=== PATIENT | male | born 1930 | race Caucasian/White ===

== ENCOUNTER 2016-09-20 08:40 | Emergency (ER) | payer OTHER ==
[~2016-09-20] VITALS: Ht 177.8 cm; Wt 71.0 kg
[~2016-09-20 08:40] MED LIST: IBUP400 PO; OCUV PO; [UNRECOGNIZED DRUG - OTHER] OP; bp pill PO
[2016-09-20 08:47] VITALS: BP 157/74; PULSE 74; RESP 16; TEMP 97.6
[2016-09-20] MEDS ORDERED: BLOOD THINNER (09:03)
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
[2016-09-20] MEDS ORDERED: TETANUS/DIPHTHERIA TOXOID ADULT 0.5 ML VIAL IM ONE (09:15)
[2016-09-20] MEDS ORDERED: LIDOCAINE HCL 1% 20 ML VIAL INFIL ONE (09:15)
[2016-09-20] MEDS ORDERED: LIDOCAINE HCL 1% PF 30 ML VIAL INFIL ONE (09:30)
[2016-09-20] MEDS ORDERED: NORC5TAB PO (09:53)
[2016-09-20] MEDS ORDERED: CEPH-460 PO (09:53)
[2016-09-20 09:54] VITALS: BP 149/77; PULSE 87; RESP 16; O2SAT 93
--- NOTE | 2016-09-20 10:01 | RADHPO ---
EXAM DATE/TIME: 09/20/2016 09:20 [facility] COMPARISON: CT BRAIN W/O CONTRAST, December 16, 2013, 19:07. INDICATIONS : Fall last night, laceration to right side of head. RADIATION DOSE: 62.17 CTDIvol (mGy) MEDICAL HISTORY : Hypertension. SURGICAL HISTORY : right eye surgery ENCOUNTER: Initial ACUITY: 1 day PAIN SCALE: 3/10 LOCATION: Right head TECHNIQUE: Multiple contiguous axial images were obtained of the head. Using automated exposure control and adj ustment of the mA and/or kV according to patient size, radiation dose was kept as low as reasonably a chievable to obtain optimal diagnostic quality images. FINDINGS: CEREBRUM: The ventricles are normal for age. There is chronic bilateral cortical atrophy and stable chronic whi te matter changes bilaterally. No evidence of midline shift, mass lesion, hemorrhage or acute infarc tion. No extra-axial fluid collections are seen. POSTERIOR FOSSA: The cerebellum and brainstem are intact. The 4th ventricle is midline. The cerebellopontine angle i s unremarkable. EXTRACRANIAL: The visualized portion of the orbits is intact. SKULL: The calvaria is intact. No evidence of skull fracture. No significant change. CONCLUSION: 1. No focal or acute intracranial hemorrhage. 2. Stable bilateral chronic atrophy and white matter changes characteristic for patient's age. Fer Lawson MD on September 20, 2016 at 9:57 Board Certified Radiologist. This report was verified electronically.
== END 2016-09-20 10:24 | disposition home or self-care (01) ==
LOC: PHED 08:40
DX: S09.90XA Unspecified injury of head, initial encounter (principal); S01.311A Laceration without foreign body of right ear, initial encounter; S01.319A Laceration without foreign body of unspecified ear, initial encounter; M19.90 Unspecified osteoarthritis, unspecified site; I10 Essential (primary) hypertension; Z87.442 Personal history of urinary calculi; F10.10 Alcohol abuse, uncomplicated; Z79.01 Long term (current) use of anticoagulants; W20.8XXA Other cause of strike by thrown, projected or falling object, initial encounter; Y93.9 Activity, unspecified; Y92.9 Unspecified place or not applicable; Y99.9 Unspecified external cause status; F17.210 Nicotine dependence, cigarettes, uncomplicated
CPT/HCPCS: 12013; 70450; 90471; 90714

== ENCOUNTER 2016-09-22 11:21 | Emergency (ER) | payer OTHER ==
[~2016-09-22] VITALS: Ht 182.9 cm; Wt 71.0 kg
[~2016-09-22 11:21] MED LIST changes: +BLOOD THINNER; +CEPH-460 PO; -IBUP400 PO; +NORC5TAB PO; -OCUV PO
[2016-09-22 11:50] VITALS: BP 136/95; PULSE 95; RESP 16; TEMP 98.2; O2SAT 97
--- NOTE | 2016-09-22 12:15 | PD ---
Data Data Last Documented VS Vital Signs Date Time Temp Pulse Resp B/P Pulse Ox O2 Delivery O2 Flow Rate FiO2 09/22/16 14:11 88 16 97 09/22/16 11:50 98.2 136/[address] Brain W/O Iv Contrast(Rout) (09/22/16 ) MDM Supervised Visit with PAOLA: Yes Narrative Course I, Dr. Mckeon, have reviewed the advance practice practitioner's documentation and am in agreement, met with the patient face to face, made the diagnosis, and the medical decision making was done by me. *My assessment and Findings: Patient had auricular hematoma drained [address] Rodriguez. There is some bruising but there is no obvious hematoma at this time. Contours of the charcoal are the same bilaterally. There is no obvious fluid collection. Sutures are intact. There is still some blood in the canal which appears fairly fresh and needs further examination and irrigation to ascertain a source. This may be blood coming from the outside injury in that needs rule out of canal injury. Patient was discussed with Dr. Roxy Marshall and the base of the skull was not well visualized on last exam. He recommends repeat imaging. So ordered. If negative can be discharged. Ralph Mckeon MD Sep 22, 2016 12:15
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
--- NOTE | 2016-09-22 13:34 | RADHPO ---
EXAM DATE/TIME: 09/22/2016 13:15 [facility] COMPARISON: CT BRAIN W/O CONTRAST, September 20, 2016, 9:20. CT BRAIN W/O CONTRAST, December 16, 2013, 19:07. INDICATIONS : Follow up basilar skull fracture. RADIATION DOSE: 60.01 CTDIvol (mGy) MEDICAL HISTORY : Hypertension. SURGICAL HISTORY : None. ENCOUNTER: [facility] ACUITY: 3 days PAIN SCALE: 1/10 LOCATION: Right cranial TECHNIQUE: Multiple contiguous axial images were obtained of the head. Using automated exposure control and adj ustment of the mA and/or kV according to patient size, radiation dose was kept as low as reasonably a chievable to obtain optimal diagnostic quality images. FINDINGS: CEREBRUM: The ventricles are normal for age. No evidence of midline shift, mass lesion, hemorrhage or acute in farction. No extra-axial fluid collections are seen. Again appreciated is ischemic deep white matter demyelinization microvascular disease and mild atrophy age-appropriate. POSTERIOR FOSSA: The cerebellum and brainstem are intact. The 4th ventricle is midline. The cerebellopontine angle i s unremarkable. EXTRACRANIAL: The visualized portion of the orbits is intact. Questionable development of a small air-fluid level i n the sphenoid sinus posteriorly. SKULL: The calvaria is intact. No evidence of skull fracture. CONCLUSION: Suggestion of a developed small air-fluid level single image posterior sphenoid sinus. Otherwise stab le exam Jesus Squires MD on September 22, 2016 at 13:29 Board Certified Radiologist. This report was verified electronically.
== END 2016-09-22 14:13 | disposition home or self-care (01) ==
LOC: PHED 11:21 → PHEFT 14:13
DX: S00.431D Contusion of right ear, subsequent encounter (principal); S01.311D Laceration without foreign body of right ear, subsequent encounter; H73.891 Other specified disorders of tympanic membrane, right ear; I10 Essential (primary) hypertension; F17.200 Nicotine dependence, unspecified, uncomplicated; Z79.01 Long term (current) use of anticoagulants; Z87.39 Personal history of other diseases of the musculoskeletal system and connective tissue; Z86.69 Personal history of other diseases of the nervous system and sense organs; Z87.442 Personal history of urinary calculi; Z87.09 Personal history of other diseases of the respiratory system; W19.XXXD Unspecified fall, subsequent encounter
CPT/HCPCS: 70450

== ENCOUNTER 2016-09-26 08:56 | Emergency (ER) | payer OTHER ==
[~2016-09-26] VITALS: Ht 180.3 cm; Wt 71.8 kg
[~2016-09-26 08:56] MED LIST changes: -BLOOD THINNER
[2016-09-26 09:01] VITALS: BP 166/83; PULSE 84; RESP 16; TEMP 98.2; O2SAT 97
--- NOTE | 2016-09-26 09:46 | PD ---
HPI Chief Complaint: Wound/Suture/Staple Re-Check Time Seen by Provider: 09:31 Travel History International Travel<30 days: No Contact w/Intl Traveler<30days: No Traveled to known affect area: No History of Present Illness HPI Patient is an 86-year-old male who suffered a fall and subsequently suffered laceration to his right ear on September 20, 2016. Patient had 4 sutures placed to right ear. Patient was told to come to the emergency room for suture removal today. Patient with no complaints at this time. PFSH Past Medical History Hx Anticoagulant Therapy: Yes Arthritis: Yes Asthma: No Autoimmune Disease: No Heart Rhythm Problems: No Cancer: No Cardiovascular Problems: No High Cholesterol: No Chemotherapy: No Chest Pain: No Congestive Heart Failure: No COPD: No Cerebrovascular Accident: No Diabetes: No Endocrine: No GERD: No Glaucoma: Yes Genitourinary: No Hypertension: Yes Immune Disorder: No Kidney Stones: Yes Musculoskeletal: Yes Neurologic: No Psychiatric: No Reproductive: No Respiratory: Yes Migraines: No Radiation Therapy: No Renal Failure: No Seizures: No Sickle Cell Disease: No Sleep Apnea: No Thyroid Disease: No Ulcer: No Influenza Vaccination: Yes Past Surgical History Abdominal Surgery: No AICD: No Arteriovenous Shunt: No Cardiac Surgery: No Endocrine Surgery: No Eye Surgery: Yes ( RIGHT EYE) Genitourinary Surgery: No Gynecologic Surgery: No Insulin Pump: No Joint Replacement: Yes (HIP) Oral Surgery: No Pacemaker: No Thoracic Surgery: No Other Surgery: Yes Family History Family History: Negative Social History Alcohol Use: Yes (4 BEERS DAILY) Tobacco Use: Yes (1/2 PPD) Substance Use: No Allergies-Medications (Allergen,Severity, Reaction): Coded Allergies: No Known Allergies (Unverified , 09/26/16) Reported Meds & Prescriptions Reported Meds & Active Scripts Active [place] (Hydrocodone-Acetaminophen) 5-325 mg Tab 1 Tab PO Q6H PRN Keflex (Cephalexin) 500 Mg Cap 500 Mg PO Q6H 5 Days Reported [glaucoma med] 1 Drop OP DAILY [bp pill] 1 Tab PO DAILY Review of Systems General / Constitutional: No: Fever Eyes: No: Visual changes HENT: No: Headaches Cardiovascular: No: Chest Pain or Discomfort Respiratory: No: Shortness of Breath Gastrointestinal: No: Abdominal Pain Genitourinary: No: Dysuria Musculoskeletal: No: Pain Skin: No Rash Neurologic: No: Weakness Psychiatric: No: Depression Endocrine: No: Polydipsia Hematologic/Lymphatic: No: Easy Bruising Physical Exam Narrative GENERAL: Well-nourished, well-developed patient. SKIN: Warm and dry. Patient with 4 sutures to his left ear - laceration is healing with no signs of infection or redness or drainage HEAD: Normocephalic. EYES: No scleral icterus. No injection or drainage. NECK: Supple, trachea midline. No JVD or lymphadenopathy. CARDIOVASCULAR: Regular rate and rhythm without murmurs, gallops, or rubs. RESPIRATORY: Breath sounds equal bilaterally. No accessory muscle use. GASTROINTESTINAL: Abdomen soft, non-tender, nondistended. MUSCULOSKELETAL: No cyanosis, or edema. Data Data Last Documented VS Vital Signs Date Time Temp Pulse Resp B/P Pulse Ox O2 Delivery O2 Flow Rate FiO2 09/26/16 09:01 98.2 84 16 166/83 97 MDM Medical Decision Making Medical Screen Exam Complete: Yes Emergency Medical Condition: No Differential Diagnosis Suture removal to right ear Narrative Course Patient is an 86-year-old male who suffered a right ear laceration on August and had 4 sutures placed to right ear. Patient is here for suture removal. Patient reports no complications from his fall and ear laceration. Patient reports that he has been feeling fine, patient here for suture removal. 4 simple interrupted sutures removed from his right ear. Patient will follow- up with his primary are doctor and return to ER as needed. Diagnosis Primary Impression: Visit for suture removal Patient Instructions: General Instructions Additional Instructions: Return to the emergency room as needed Disposition: 01 DISCHARGE HOME Condition: Stable Katiana Shah DO Sep 26, 2016 09:45
== END 2016-09-26 09:54 | disposition home or self-care (01) ==
LOC: PHED 08:56
DX: Z48.02 Encounter for removal of sutures (principal); S01.311D Laceration without foreign body of right ear, subsequent encounter
CPT/HCPCS: 99281

== ENCOUNTER 2018-02-12 05:10 | Emergency (ER) | payer OTHER ==
[~2018-02-12] VITALS: Ht 180.3 cm; Wt 72.7 kg
[2018-02-12 05:10] VITALS: BP_SYST 177; BP_SYST 182; BP_DIAS 121; BP_DIAS 95; PULSE 87; RESP 16; TEMP 98.1; O2SAT 96
[2018-02-12] MEDS ORDERED: ASPI-183 PO (05:20)
[2018-02-12] MEDS ORDERED: OCUVTAB PO (05:21)
--- NOTE | 2018-02-12 06:10 | RADRPT ---
EXAM DATE: 02/12/2018 6:01 AM EDT AGE/SEX: 87 years / Male INDICATIONS: Patient fell and hit head walking home from bar. CLINICAL DATA: This is the patient's initial encounter. Patient reports that signs and symptoms have been present for 1 day and indicates a pain score of 4/10. MEDICAL/SURGICAL HISTORY: Hypertension. None. RADIATION DOSE: 36.46 CTDI (mGy) COMPARISON: [facility], CT BRAIN W/O CONTRAST, 09/22/2016. . TECHNIQUE: CT of the head without contrast. Using automated exposure control and adjustment of the mA and/or kV according to patient size, radiation dose was kept as low as reasonably achievable to ob tain optimal diagnostic quality images. DICOM format image data is available electronically for revi ew and comparison. FINDINGS: Cerebrum: The ventricles are normal for age. No evidence of midline shift, mass lesion, hemorrhage or acute infarction. No extraaxial fluid collections are seen. Posterior Fossa: The cerebellum and brainstem are intact. The 4th ventricle is midline. The cerebe llopontine angle is unremarkable. Extracranial: The visualized portion of the orbits is intact. There are multiple new fractures invol ving the right anterior, lateral and posterior maxilla. There is a large air-fluid level now noted in the right maxillary sinus. Skull: The calvaria is intact. No evidence of skull fracture. CONCLUSION: 1. New acute fractures of the right anterior, lateral and posterior maxilla with large air-fluid lev el in the right maxillary sinus. 2. No acute hemorrhage or mass effect. Electronically signed by: Gary Walton MD 02/12/2018 6:09 AM EDT
--- NOTE | 2018-02-12 06:12 | RADRPT ---
EXAM DATE: 02/12/2018 6:08 AM EDT AGE/SEX: 87 years / Male INDICATIONS: Patient fell and hit head walking home from the bar. CLINICAL DATA: This is the patient's initial encounter. Patient reports that signs and symptoms have been present for 1 day and indicates a pain score of 4/10. MEDICAL/SURGICAL HISTORY: Hypertension. None. RADIATION DOSE: 26.41 CTDI (mGy) COMPARISON: No prior exams available for comparison. TECHNIQUE: Contiguous axial images were obtained using helical multirow detector technique. The vol umetric data was post-processed with multiplanar reconstruction in oblique axial, sagittal, and coron al planes. Using automated exposure control and adjustment of the mA and/or kV according to patient s ize, radiation dose was kept as low as reasonably achievable to obtain optimal diagnostic quality gaby ges. DICOM format image data is available electronically for review and comparison. FINDINGS: Vertebrae: Normal vertebral body height. There is patchy osteopenia. Diffuse degenerative disc changes are present with disc space narrowing and hypertrophic change. The dens is intact Alignment: Normal. No subluxation. The axial images demonstrate that the vertebral bodies and posterior elements are intact with no evid ence of fracture. Diffuse degenerative disc changes are present with disc osteophyte complexes. Hyper trophic changes are noted involving the facet joints. CONCLUSION: 1. No acute fracture or malalignment. 2. Diffuse degenerative disc and degenerative joint changes. Electronically signed by: Gary Walton MD 02/12/2018 6:10 AM EDT
[2018-02-12 06:15] VITALS: BP 196/94; PULSE 106; O2SAT 97
[2018-02-12 06:21] LABS: HEMATOCRIT 44.7 % (39.0-51.0); HEMOGLOBIN 15.5 GM/DL (13.0-17.0); MEAN CELL VOLUME 96.3 FL (80.0-100.0); MEAN CORPUSCULAR HEMOGLOBIN 33.5 PG (27.0-34.0); MEAN CORPUSCULAR HGB CONC 34.8 % (32.0-36.0); MEAN PLATELET VOLUME 10.2 FL (7.0-11.0); PLATELET COUNT 202 TH/MM3 (150-450); RED BLOOD COUNT 4.64 MIL/MM3 (4.50-5.90); RED CELL DISTRIBUTION WIDTH 13.2 % (11.6-17.2); WHITE BLOOD COUNT 12.5 TH/MM3 (4.0-11.0)
[2018-02-12] MEDS ORDERED: KETOROLAC TROMETHAMINE 30 MG/ML (IVP) VIAL IV PUSH ONE (06:30)
[2018-02-12] MEDS ORDERED: cefTRIAXone INJ 1,000 MG in SODIUM CHLORIDE 0.9% INJ 100 ML IV ONE (06:30)
[2018-02-12 06:31] LABS: CHLORIDE 102 MEQ/L (98-107); SODIUM (NA) 138 MEQ/L (136-145)
[2018-02-12 06:34] LABS: CALCIUM 9.2 MG/DL (8.5-10.1)
[2018-02-12 06:35] LABS: ALBUMIN 3.8 GM/DL (3.4-5.0); BICARBONATE 27.1 MEQ/L (21.0-32.0); BLOOD UREA NITROGEN 13 MG/DL (7-18); GLUCOSE,RANDOM 88 MG/DL (74-106)
[2018-02-12 06:38] LABS: ALT (GPT) 35 U/L (12-78); AST (GOT) 51 U/L (15-37); CREATININE 0.63 MG/DL (0.60-1.30); GLOMERULAR FILTRATION RATE 120 ML/MIN (>89)
[2018-02-12 06:40] LABS: TOTAL BILIRUBIN ADULT 0.8 MG/DL (0.2-1.0); TOTAL PROTEIN 8.3 GM/DL (6.4-8.2)
[2018-02-12 06:41] LABS: ALKALINE PHOSPHATASE 89 U/L (45-117)
[2018-02-12 06:53] LABS: BANDS 1 % (0-6); BASOPHILS 1 % (0-2); LYMPHOCYTES 7 % (9-44); MONOCYTES 3 % (0-8); NEUTROPHIL # MANUAL DIFF 11.1 TH/MM3 (1.8-7.7); POLYS (SEG NEUTROPHILS) 88 % (16-70)
--- NOTE | 2018-02-12 07:09 | PD ---
HPI Chief Complaint: Fall Time Seen by Provider: 06:27 Travel History International Travel<30 days: No Contact w/Intl Traveler<30days: No Traveled to known affect area: No History of Present Illness HPI The patient is an 87-year-old male that was walking from a bar to home and he fell on the sidewalk. He suffered abrasions when he hit his right face. There apparently there there was loss of consciousness.. He denies any neck pain or radiation of pain down his arms or legs. The patient's last tetanus shot was last year. PFSH Past Medical History Hx Anticoagulant Therapy: Yes (ASPIRIN) Arthritis: Yes Asthma: No Autoimmune Disease: No Heart Rhythm Problems: No Cancer: No Cardiovascular Problems: No High Cholesterol: No Chemotherapy: No Chest Pain: No Congestive Heart Failure: No COPD: No Cerebrovascular Accident: No Diabetes: No Endocrine: No GERD: No Glaucoma: Yes Genitourinary: Yes (URINARY FREQUENCY) Hypertension: Yes Immune Disorder: No Kidney Stones: Yes Musculoskeletal: Yes Neurologic: No Psychiatric: No Reproductive: No Respiratory: Yes Migraines: No Pneumonia: Yes Radiation Therapy: No Renal Failure: No Seizures: No Sickle Cell Disease: No Sleep Apnea: No Thyroid Disease: No Ulcer: No Influenza Vaccination: Yes Past Surgical History Abdominal Surgery: No AICD: No Arteriovenous Shunt: No Cardiac Surgery: No Endocrine Surgery: No Eye Surgery: Yes (BILAT CATARACT) Genitourinary Surgery: No Gynecologic Surgery: No Insulin Pump: No Joint Replacement: Yes (RIGHT HIP) Oral Surgery: Yes ("HAD ALL MY TEETH REMOVED") Pacemaker: No Thoracic Surgery: No Other Surgery: Yes Social History Alcohol Use: Yes (4 BEERS DAILY) Tobacco Use: Yes (1/4 PPD) Substance Use: No Allergies-Medications (Allergen,Severity, Reaction): Coded Allergies: No Known Allergies (Unverified Adverse Reaction, Unknown, 02/12/18) Reported Meds & Prescriptions Reported Meds & Active Scripts Active Cephalexin 500 Mg Tab 500 Mg PO Q6H Reported Ocuvite (Multiple Vitamins W/ Minerals) 1 Tab 1 Tab PO DAILY Aspirin 325 Mg Tab 325 Mg PO DAILY [glaucoma med] 1 Drop OP DAILY [bp pill] 1 Tab PO DAILY Review of Systems Except as stated in HPI: all other systems reviewed are Neg Physical Exam Narrative GENERAL: The patient is alert, oriented 3 in moderate apparent distress with his right facial pain. His vital signs show blood pressure 182/121 but repeat is 177/95. The patient does not appear intoxicated with alcohol clinically. SKIN: Focused skin assessment warm/dry. There is an abrasion over the right face, this will be cleaned by the nurses. HEAD: Neither raccoon eyes or sorto sign is present.. Normocephalic. EYES: Pupils equal and round. No scleral icterus. No injection or drainage. Extraocular movements are normal, no entrapment is noted. ENT: No nasal bleeding or discharge. Mucous membranes pink and moist. There is no hemotympanum present and no blood coursing down the posterior pharyngeal wall, there is no septal hematoma present. NECK: Trachea midline. No JVD. No neck tenderness is present and there is no posterior spinous process deformity or tenderness. CARDIOVASCULAR: Regular rate and rhythm. No murmur appreciated. RESPIRATORY: No accessory muscle use. Clear to auscultation. Breath sounds equal bilaterally. GASTROINTESTINAL: Abdomen soft, non-tender, nondistended. Hepatic and splenic margins not palpable. No guarding or rebound is present. MUSCULOSKELETAL: No obvious deformities. No clubbing. No cyanosis. No edema. NEUROLOGICAL: Awake and alert. No obvious cranial nerve deficits. Motor grossly within normal limits. Normal speech. PSYCHIATRIC: Appropriate mood and affect; insight and judgment normal. Data Data Last Documented VS Vital Signs Date Time Temp Pulse Resp B/P (MAP) Pulse Ox O2 Delivery O2 Flow Rate FiO2 02/12/18 06:15 106 196/94 (128) 97 Room Air 02/12/18 05:10 98[address] Brain W/O Iv Contrast(Rout) (02/12/18 ) Ct Cerv Spine W/O Contrast (02/12/18 ) Complete Blood Count With Diff (02/12/18 05:29) Comprehensive Metabolic Panel (02/12/18 05:29) Alcohol (Ethanol) (02/12/18 05:29) Ketorolac Inj (Toradol Inj) (02/12/18 06:30) Ceftriaxone Inj (Rocephin Inj) (02/12/18 06:30) Lidocaine 1% Inj (50 Ml) (Xylocaine 1% I (02/12/18 07:30) Ceftriaxone Inj (Rocephin Inj) (02/12/18 07:30) Labs Laboratory Tests Test 02/12/18 06:00 White Blood Count 12.5 TH/MM3 Red Blood Count 4.64 MIL/MM3 Hemoglobin 15.5 GM/DL Hematocrit 44.7 % Mean Corpuscular Volume 96.3 FL Mean Corpuscular Hemoglobin 33.5 PG Mean Corpuscular Hemoglobin Concent 34.8 % Red Cell Distribution Width 13.2 % Platelet Count 202 TH/MM3 Mean Platelet Volume 10.2 FL CBC Comment AUTO DIFF Differential Total Cells Counted 100 Neutrophils % (Manual) 88 % Band Neutrophils % 1 % Lymphocytes % 7 % Monocytes % 3 % Basophils % 1 % Neutrophils # (Manual) 11.1 TH/MM3 Differential Comment FINAL DIFF MANUAL Platelet Estimate NORMAL Platelet Morphology Comment NORMAL Red Cell Morphology Comment NORMAL Blood Urea Nitrogen 13 MG/DL Creatinine 0.63 MG/DL Random Glucose 88 MG/DL Total Protein 8.3 GM/DL Albumin 3.8 GM/DL Calcium Level 9.2 MG/DL Alkaline Phosphatase 89 U/L Aspartate Amino Transf (AST/SGOT) 51 U/L Alanine Aminotransferase (ALT/SGPT) 35 U/L Total Bilirubin 0.8 MG/DL Sodium Level 138 MEQ/L Potassium Level 3.8 MEQ/L Chloride Level 102 MEQ/L Carbon Dioxide Level 27.1 MEQ/L Anion Gap 9 MEQ/L Estimat Glomerular Filtration Rate 120 ML/MIN Ethyl Alcohol Level 32 MG/DL [facility] Medical Decision Making Medical Screen Exam Complete: Yes Emergency Medical Condition: Yes Medical Record Reviewed: Yes Interpretation(s) The CT brain shows no acute fractures of the right anterior, lateral and posterior maxilla with large air-fluid levels in the right maxillary sinus. The brain shows no acute hemorrhage or mass-effect. The CT of the cervical spine shows no acute fracture or malalignment but does show diffuse degenerative disc and degenerative joint changes. The complete metabolic profile shows a total protein of 8.3 and SGOT of 51 but is otherwise normal. The alcohol level is only 32. The CBC shows a white count of 12,500 but is otherwise unremarkable. Differential Diagnosis Intracranial hemorrhage, skull fracture, facial/maxillary fractures,, fracture C -spine, cervical strain Narrative Course The patient has fractures of the right maxilla. I discussed at length admission for this patient but is unclear what benefits will drive from admission. Maxillofacial generally likes to see the patient as an outpatient in their office. The patient will be referred to maxillofacial and given tramadol and the antibiotic Keflex. He is given Rocephin here. The patient is partially blind that he can see if we print addresses and phone numbers using large lettering. The nurse will do this. He should set up an appointment with maxillofacial. If he does not think he can do this, or if he continues to fall he should call an ambulance for possible admission. Additional Instructions: Follow-up with maxillofacial, we will write his their address in large print as well as their phone number. The prescription for pain medicine and antibiotics will need to be filled. Do not combine the pain medicine or antibiotic with alcohol. Scripts Tramadol (Tramadol) 50 Mg Tab 50 MG PO Q6H Y for PAIN, #20 TAB 0 Refills Prov: Jeremiah Rowe MD 02/12/18 Cephalexin (Cephalexin) 500 Mg Tab 500 MG PO Q6H for Infection, #40 TAB 0 Refills Prov: Jeremiah Rowe MD 02/12/18 Disposition: 01 DISCHARGE HOME Condition: Stable Jeremiah Rowe MD Feb 12, 2018 07:09
[2018-02-12] MEDS ORDERED: CEPH500T PO (07:22)
[2018-02-12] MEDS ORDERED: TRAM50TA PO (07:23)
[2018-02-12] MEDS ORDERED: LIDOCAINE HCL 1% PF 5 ML AMPULE ONE (07:26)
[2018-02-12] MEDS ORDERED: LIDOCAINE HCL 1% 50 ML VIAL IM ONE (07:30)
[2018-02-12 07:38] VITALS: BP 169/89; PULSE 97; RESP 18; O2SAT 98
[2018-02-12 08:16] VITALS: RESP 18
== END 2018-02-12 08:23 | disposition home or self-care (01) ==
LOC: PHED 05:10
DX: S02.40CA Maxillary fracture, right side, initial encounter for closed fracture (principal); W18.30XA Fall on same level, unspecified, initial encounter; Y93.01 Activity, walking, marching and hiking; Y92.480 Sidewalk as the place of occurrence of the external cause; I10 Essential (primary) hypertension; M19.90 Unspecified osteoarthritis, unspecified site; F17.210 Nicotine dependence, cigarettes, uncomplicated; Z87.442 Personal history of urinary calculi; Z79.899 Other long term (current) drug therapy
CPT/HCPCS: 70450; 72125; 80053; 80307; 85007; 85027; 96372; 96374; 96375; 99284; J0696; J1885

== ENCOUNTER 2018-05-26 11:49 | Inpatient (IN) ==
--- NOTE | 2018-05-26 12:19 | ED ---
HPI General Chief complaint: Urogenital-Male Stated complaint: Weakness Time Seen by Provider: 05/26/18 12:02 Source: patient Mode of arrival: ambulatory Limitations: no limitations History of Present Illness HPI narrative: Patient is an 87-year-old male presenting to the emergency department for evaluation of fatigue and weakness. He states it started 3 months ago getting progressively worse. Today he states that he went to put on his shoes and his knees became weak and he sat on the floor, he had to call a friend to help him up. He denies any head injury or loss of consciousness. He states that he went to [facility] 1 week ago and was diagnosed with a urinary tract infection, he completed the antibiotics however his symptoms have been unchanged. He reports weight loss but does not quantify how much weight he has lost. He reports midsternal chest pain that does not radiate, dull, aching, he equates this to his tobacco use. He states he quit smoking 3 weeks ago. Patient reports a loss of appetite but denies any nausea or vomiting. Symptom onset was gradual, symptoms are moderate nature. Unknown exacerbating or alleviating factors. 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 MD complaint: Weakness, chest pain Onset (ago): month(s) Radiation: non-radiation Severity: mild Severity scale (1-10): 3 Quality: aching and dull Pain Consistency: intermittent Relieving factors: none Exacerbating factors: none Associated symptoms: loss of appetite, malaise and weakness Treatments prior to arrival: none Related Data Home Medications Medication Instructions Recorded Confirmed sulfamethoxazole-trimethoprim 1 tab PO BID 05/26/18 05/26/18 [Bactrim DS] tramadol 50 mg PO Q6H PRN 05/26/18 05/26/18 Allergies Allergy/AdvReac Type Severity Reaction Status Date / Time No Known Allergies Allergy Unverified 05/26/18 12:05 Review of Systems ROS: all other systems reviewed are negative PMFSH History History Provided By: Patient Medical History Medical History Hypertension (Acute) Surgical History Surgical History History of right hip replacement (Acute) Social History Social History Smoking Status: Former smoker How Often Do You Have a Drink Containing Alcohol: 2 to 4 times a month Exam Narrative Exam Narrative: GENERAL: Thin, well-developed, alert elderly male. Presenting in no acute distress. SKIN: Focused skin assessment warm/dry. HEAD: Atraumatic. Normocephalic. EYES: Pupils equal and round. No scleral icterus. No injection or drainage. ENT: No nasal bleeding or discharge. Mucous membranes pink and moist. NECK: Trachea midline. No JVD. CARDIOVASCULAR: Mildly tachycardic. No murmur appreciated. RESPIRATORY: No accessory muscle use. Coarse breath sounds at bases GASTROINTESTINAL: Abdomen soft, non-tender, nondistended. Hepatic and splenic margins not palpable. Positive bowel sounds MUSCULOSKELETAL: No obvious deformities. No clubbing. No cyanosis. No edema. NEUROLOGICAL: Awake and alert. No obvious cranial nerve deficits. Motor grossly within normal limits. Normal speech. PSYCHIATRIC: Appropriate mood and affect; insight and judgment normal. Course Initial Documented Vital Signs Temperature 97.3 F L 05/26/18 11:56 Pulse Rate 97 H 05/26/18 11:56 Respiratory Rate 22 05/26/18 11:56 Blood Pressure 142/61 H 05/26/18 11:56 Pulse Oximetry 98 05/26/18 11:56 Last Documented Vital Signs Temperature 97.3 F L 05/26/18 11:56 Pulse Rate 87 05/26/18 12:03 Respiratory Rate 16 05/26/18 12:00 Blood Pressure 136/70 05/26/18 12:00 Pulse Oximetry 98 05/26/18 12:13 Medical Decision Making [facility] Narrative Medical decision making narrative: Patient presented for evaluation of generalized weakness, chest pain, weight loss. Labs and imaging ordered and pending. Patient's vital signs are stable, IV access is established, patient was placed on telemetry monitoring continuous pulse oximetry. Labs reviewed, CBC with no acute findings, chemistry with elevated BUN at 24. Patient was given a liter of IV fluids. Urinalysis is consistent with a urinary tract infection, reflex culture is pending. Patient was treated empirically with Rocephin at this time. CT scan of the abdomen and pelvis shows a 2 cm bladder stone. This is not causing outlet obstruction, markedly enlarged prostate. There are no acute findings identified otherwise. Patient has been resting comfortably, patient will be admitted with generalized weakness and urinary tract infection. Medical Screen Exam Complete: Yes Emergency Medical Condition: Yes Differential Diagnosis Differential Diagnosis: Metabolic abnormality versus malignancy versus UTI versus arrhythmia versus other Medical Records Medical records reviewed: Yes I reviewed the patient's medical records. Lab Data Lab results reviewed: Yes I reviewed the patient's lab results. Result diagrams: 05/26/18 12:03 05/26/18 12:30 Lab Results 05/26/18 05/26/18 05/26/18 Range/Units 12:03 12:30 12:30 WBC 10.2 (4.0-11.0) th/mm3 RBC 4.17 L (4.50-5.90) mil/mm3 Hgb 13.6 (13.0-17.0) gm/dL Hct 40.1 (39.0-51.0) % MCV 96.1 (80.0-100.0) fL MCH 32.6 (27.0-34.0) pg MCHC 33.9 (32.0-36.0) % RDW 14.3 (11.6-17.2) % Plt Count 260 (150-450) th/mm3 MPV 9.4 (7.0-11.0) fL Neut % (Auto) 85.2 H (16.0-70.0) % Lymph % (Auto) 4.6 L (9.0-44.0) % Major % (Auto) 9.1 H (0.0-8.0) % Eos % (Auto) 0.7 (0.0-4.0) % Baso % (Auto) 0.4 (0.0-2.0) % Neut # (Auto) 8.7 H (1.8-7.7) th/mm3 Lymph # (Auto) 0.5 L (1.0-4.8) th/mm3 Major # (Auto) 0.9 (0.0-0.9) th/mm3 Eos # (Auto) 0.1 (0.0-0.4) th/mm3 Baso # (Auto) 0.0 (0.0-0.2) th/mm3 WBC Differential . Differential Comment Auto diff final PT 12.1 H (9.8-11.6) sec INR 1.2 Ratio APTT 32.0 H (24.3-30.1) sec Sodium 134 L (136-145) meq/L Potassium 4.4 (3.5-5.1) meq/L Chloride 98 (98-107) meq/L Carbon Dioxide 27.2 (21.0-32.0) meq/L Anion Gap 9 (5-15) meq/L BUN 24 H (7-18) mg/dL Creatinine 0.95 (0.60-1.30) mg/dL Estimated GFR 75 L (>89) mL/min Random Glucose 91 (74-106) mg/dL Calcium 9.7 (8.5-10.1) mg/dL Magnesium 1.5 (1.5-2.5) mg/dL Total Bilirubin 1.4 H (0.2-1.0) mg/dL AST 47 H (15-37) U/L ALT 58 (12-78) U/L Alkaline Phosphatase 353 H (45-117) U/L Total Creatine Kinase (39-308) U/L Troponin I (0.02-0.05) ng/mL Total Protein 7.0 (6.4-8.2) g/dL Albumin 2.9 L (3.4-5.0) g/dL TSH (0.358-3.740) uIU/mL Free T4 (0.76-1.46) ng/dL Urine Color (Yellw/Straw) Urine Clarity (Clear) Urine pH (5.0-8.5) Ur Specific Basin (1.002-1.035) Urine Protein (Neg-Trace) mg/dL Urine Glucose (UA) (Negative) mg/dL Urine Ketones (Negative) mg/dL Urine Occult Blood (Negative) Urine Nitrate (Negative) Urine Bilirubin (Negative) Urine Urobilinogen (Less than 2) mg/dL Ur Leukocyte Esterase (Negative) Urine RBC (0-3) /hpf Urine WBC (0-5) /hpf Ur Squamous Epith Cells (0-5) /hpf Amorphous Sediment (None) /hpf Urine Mucus (Occasional) /lpf Micro UA Comment Ur Microscopic Review Urine Culture Comments Blood Type Blood Type Recheck Antibody Screen 05/26/18 05/26/18 05/26/18 Range/Units 12:30 12:30 12:30 WBC (4.0-11.0) th/mm3 RBC (4.50-5.90) mil/mm3 Hgb (13.0-17.0) gm/dL Hct (39.0-51.0) % MCV (80.0-100.0) fL MCH (27.0-34.0) pg MCHC (32.0-36.0) % RDW (11.6-17.2) % Plt Count (150-450) th/mm3 MPV (7.0-11.0) fL Neut % (Auto) (16.0-70.0) % Lymph % (Auto) (9.0-44.0) % Major % (Auto) (0.0-8.0) % Eos % (Auto) (0.0-4.0) % Baso % (Auto) (0.0-2.0) % Neut # (Auto) (1.8-7.7) th/mm3 Lymph # (Auto) (1.0-4.8) th/mm3 Major # (Auto) (0.0-0.9) th/mm3 Eos # (Auto) (0.0-0.4) th/mm3 Baso # (Auto) (0.0-0.2) th/mm3 WBC Differential Differential Comment PT (9.8-11.6) sec INR Ratio APTT (24.3-30.1) sec Sodium (136-145) meq/L Potassium (3.5-5.1) meq/L Chloride (98-107) meq/L Carbon Dioxide (21.0-32.0) meq/L Anion Gap (5-15) meq/L BUN (7-18) mg/dL Creatinine (0.60-1.30) mg/dL Estimated GFR (>89) mL/min Random Glucose (74-106) mg/dL Calcium (8.5-10.1) mg/dL Magnesium (1.5-2.5) mg/dL Total Bilirubin (0.2-1.0) mg/dL AST (15-37) U/L ALT (12-78) U/L Alkaline Phosphatase (45-117) U/L Total Creatine Kinase 40 (39-308) U/L Troponin I 0.03 (0.02-0.05) ng/mL Total Protein (6.4-8.2) g/dL Albumin (3.4-5.0) g/dL TSH 0.781 (0.358-3.740) uIU/mL Free T4 1.21 (0.76-1.46) ng/dL Urine Color (Yellw/Straw) Urine Clarity (Clear) Urine pH (5.0-8.5) Ur Specific Basin (1.002-1.035) Urine Protein (Neg-Trace) mg/dL Urine Glucose (UA) (Negative) mg/dL Urine Ketones (Negative) mg/dL Urine Occult Blood (Negative) Urine Nitrate (Negative) Urine Bilirubin (Negative) Urine Urobilinogen (Less than 2) mg/dL Ur Leukocyte Esterase (Negative) Urine RBC (0-3) /hpf Urine WBC (0-5) /hpf Ur Squamous Epith Cells (0-5) /hpf Amorphous Sediment (None) /hpf Urine Mucus (Occasional) /lpf Micro UA Comment Ur Microscopic Review Urine Culture Comments Blood Type A Positive Blood Type Recheck Required Antibody Screen Negative 05/26/18 Range/Units 12:40 WBC (4.0-11.0) th/mm3 RBC (4.50-5.90) mil/mm3 Hgb (13.0-17.0) gm/dL Hct (39.0-51.0) % MCV (80.0-100.0) fL MCH (27.0-34.0) pg MCHC (32.0-36.0) % RDW (11.6-17.2) % Plt Count (150-450) th/mm3 MPV (7.0-11.0) fL Neut % (Auto) (16.0-70.0) % Lymph % (Auto) (9.0-44.0) % Major % (Auto) (0.0-8.0) % Eos % (Auto) (0.0-4.0) % Baso % (Auto) (0.0-2.0) % Neut # (Auto) (1.8-7.7) th/mm3 Lymph # (Auto) (1.0-4.8) th/mm3 Major # (Auto) (0.0-0.9) th/mm3 Eos # (Auto) (0.0-0.4) th/mm3 Baso # (Auto) (0.0-0.2) th/mm3 WBC Differential Differential Comment PT (9.8-11.6) sec INR Ratio APTT (24.3-30.1) sec Sodium (136-145) meq/L Potassium (3.5-5.1) meq/L Chloride (98-107) meq/L Carbon Dioxide (21.0-32.0) meq/L Anion Gap (5-15) meq/L BUN (7-18) mg/dL Creatinine (0.60-1.30) mg/dL Estimated GFR (>89) mL/min Random Glucose (74-106) mg/dL Calcium (8.5-10.1) mg/dL Magnesium (1.5-2.5) mg/dL Total Bilirubin (0.2-1.0) mg/dL AST (15-37) U/L ALT (12-78) U/L Alkaline Phosphatase (45-117) U/L Total Creatine Kinase (39-308) U/L Troponin I (0.02-0.05) ng/mL Total Protein (6.4-8.2) g/dL Albumin (3.4-5.0) g/dL TSH (0.358-3.740) uIU/mL Free T4 (0.76-1.46) ng/dL Urine Color Shirley (Yellw/Straw) Urine Clarity Cloudy H (Clear) Urine pH 6.0 (5.0-8.5) Ur Specific Basin 1.019 (1.002-1.035) Urine Protein 100 H (Neg-Trace) mg/dL Urine Glucose (UA) Negative (Negative) mg/dL Urine Ketones Trace H (Negative) mg/dL Urine Occult Blood Negative (Negative) Urine Nitrate Negative (Negative) Urine Bilirubin Negative (Negative) Urine Urobilinogen 4 or greater (Less than 2) mg/dL Ur Leukocyte Esterase Small H (Negative) Urine RBC 26 H (0-3) /hpf Urine WBC 68 H (0-5) /hpf Ur Squamous Epith Cells 2 (0-5) /hpf Amorphous Sediment Rare H (None) /hpf Urine Mucus Few H (Occasional) /lpf Micro UA Comment Culture indicated Ur Microscopic Review Not Reportable Urine Culture Comments Culture indicated Blood Type Blood Type Recheck Antibody Screen Imaging Data Radiologist's impression: Abdomen/Pelvis CT 05/26/18 12:11 CONCLUSION: 1. Markedly enlarged prostate. 2. 2 cm calcified urinary bladder stone. 3. Uncomplicated colonic diverticulosis. 4. 18 mm left adrenal nodule consistent with probable adrenal adenoma. 5. Cardiomegaly and coronary artery calcifications. 6. Degenerative changes, scoliosis and multilevel spinal stenoses within lumbar spine. 7. Small left inguinal hernia containing only fat. 8. Posterior bibasilar atelectatic changes. 9. Tiny bilateral pleural effusions. Chest X-Ray 05/26/18 12:11 CONCLUSION: 1. Cardiomegaly. 2. Bilateral rotator cuff pathology and significant degenerative changes involving the shoulders. 3. No focal infiltrate or pulmonary vascular congestion. 4. Degenerative changes throughout the thoracic spine. Discharge Plan Discharge Disposition Patient Disposition: 30 Still Patient Discharge Condition Condition: Stable Discharge Details Diagnosis: Acute UTI, Weakness Physicians Team ED Provider: Simona Caicedo ED Midlevel Provider: Taylor Cha Primary Care Provider: Primary Care Yu Noriega Attending Provider: Zulay Troy Rxs /Orders / Referrals /Forms Prescriptions: No Action sulfamethoxazole-trimethoprim [Bactrim DS] 800-160 mg Tablet 1 tab PO BID RF: 0 tramadol 50 mg Tablet 50 mg PO Q6H PRN (Reason: Pain) RF: 0 Discharge Interventions Interventions: Vital Signs Last Done: 05/26/18 12:00 Status ED Status: Admitted Patient
[2018-05-26 12:50] LABS: Baso % (Auto) 0.4 % (0.0-2.0); Eos # (Auto) 0.1 th/mm3 (0.0-0.4); Eos % (Auto) 0.7 % (0.0-4.0); Hematocrit 40.1 % (39.0-51.0); Hemoglobin 13.6 gm/dL (13.0-17.0); Lymph # (Auto) 0.5 th/mm3 (1.0-4.8); Lymph % (Auto) 4.6 % (9.0-44.0); Mean Corpuscular HGB Conc 33.9 % (32.0-36.0); Mean Corpuscular Hemoglobin 32.6 pg (27.0-34.0); Mean Corpuscular Volume 96.1 fL (80.0-100.0); Mean Platelet Volume 9.4 fL (7.0-11.0); Mono # (Auto) 0.9 th/mm3 (0.0-0.9); Mono % (Auto) 9.1 % (0.0-8.0); Neut # (Auto) 8.7 th/mm3 (1.8-7.7); Neut % (Auto) 85.2 % (16.0-70.0); Platelet Count 260 th/mm3 (150-450); Red Blood Count 4.17 mil/mm3 (4.50-5.90); Red Cell Distribution Width 14.3 % (11.6-17.2); White Blood Count 10.2 th/mm3 (4.0-11.0)
--- NOTE | 2018-05-26 12:58 | XR ---
EXAM DATE: 05/26/2018 12:11 PM EDT AGE/SEX: 87 years / Male INDICATIONS: Shortness of breath and chest pain. CLINICAL DATA: This is the patient's initial encounter. Patient reports that signs and symptoms have been present for 2 days and indicates a pain score of 5/10. MEDICAL/SURGICAL HISTORY: Hypertension. None. COMPARISON: [facility], CHEST PA & LAT, 10/17/2013. . FINDINGS: Heart is enlarged. The pulmonary vascular pattern is normal. The lungs are clear. Degenerative change s and probable bilateral rotator cuff pathology are noted involving the shoulders. Degenerative colvin es are noted throughout the thoracic spine. CONCLUSION: 1. Cardiomegaly. 2. Bilateral rotator cuff pathology and significant degenerative changes involving the shoulders. 3. No focal infiltrate or pulmonary vascular congestion. 4. Degenerative changes throughout the thoracic spine. Electronically signed by: Ralph Dale MD 05/26/2018 12:57 PM EDT
[2018-05-26 12:59] LABS: Amorphous Sediment,Urine Rare /hpf; Bilirubin,Urine Negative (Negative); Clarity,Urine Cloudy (Clear); Color,Urine Amber (Yellw/Straw); Glucose,Urine (UA) Negative (Negative); Leukocyte Esterase,Urine Small (Negative); Mucus,Urine Few /lpf (Occasional); Nitrite,Urine Negative (Negative); Specific Gravity,Urine 1.019 (1.002-1.035); Squamous Epithelial Cell,Urine 2 /hpf (0-5); Urobilinogen,Urine 4 or Greater mg/dL (Less than 2)
[2018-05-26 13:00] LABS: INR 1.2 Ratio; Prothrombin Time 12.1 sec (9.8-11.6)
[2018-05-26 13:11] LABS: Albumin 2.9 g/dL (3.4-5.0); Anion Gap 9 meq/L (5-15); Aspartate Aminotransferase 47 U/L (15-37); Blood Urea Nitrogen 24 mg/dL (7-18); Calcium 9.7 mg/dL (8.5-10.1); Carbon Dioxide 27.2 meq/L (21.0-32.0); Chloride 98 meq/L (98-107); Glomerular Filtration Rate 75 mL/min (>89); Glucose,Random 91 mg/dL (74-106); Magnesium 1.5 mg/dL (1.5-2.5); Potassium 4.4 meq/L (3.5-5.1); Sodium 134 meq/L (136-145)
[2018-05-26 13:14] LABS: Alanine Aminotransferase 58 U/L (12-78); Alkaline Phosphatase 353 U/L (45-117)
[2018-05-26] MEDS ORDERED: Sod Chloride 0.9% Inj 1,000 ML IV.SIG SCH (13:15)
[2018-05-26 13:16] LABS: Troponin I 0.03 ng/mL (0.02-0.05)
[2018-05-26 13:21] LABS: Free T4 (Free Thyroxine) 1.21 ng/dL (0.76-1.46); Thyroid Stimulating Hormone 0.781 uIU/mL (0.358-3.740)
--- NOTE | 2018-05-26 13:56 | CT ---
EXAM DATE: 05/26/2018 1:20 PM EDT AGE/SEX: 87 years / Male INDICATIONS: Weakness, with hematuria. CLINICAL DATA: This is the patient's initial encounter. Patient reports that signs and symptoms have been present for 1 day and indicates a pain score of 3/10. MEDICAL/SURGICAL HISTORY: Hypertension. None. ORAL CONTRAST: No oral contrast ingested. RADIATION DOSE: 6.57 CTDI (mGy) COMPARISON: No prior exams available for comparison. TECHNIQUE: Multiple contiguous axial images were obtained through the abdomen and pelvis following b olus infusion of 94 ml Omnipaque 350 (iohexol) nonionic water-soluble contrast as a single exam dos e. No oral contrast ingested. Using automated exposure control and adjustment of the mA and/or kV ac cording to patient size, radiation dose was kept as low as reasonably achievable to obtain optimal di agnostic quality images. DICOM format image data is available electronically for review and comparis on. FINDINGS: Lower Lungs: Tiny bilateral pleural effusions are noted. The heart is enlarged. Coronary artery calci fications are noted. Posterior bibasilar atelectatic changes are noted. Liver: The liver has a homogeneous density without space-occupying lesion. There is no dilation of th e biliary tree. Spleen: Homogeneous density without enlargement. Pancreas: Unremarkable without mass or calcification. Kidneys: Normal in size and shape. No evidence of mass or hydronephrosis. There is a tiny 5 mm cyst within the upper pole of the right kidney. Adrenal Glands: There is an 18 mm left adrenal nodule consistent with probable adrenal adenoma. Rig ht adrenal gland is normal. Aorta: The aorta and proximal iliac vessels are grossly unremarkable without aneurysmal dilation. Bowel/Mesentery: Uncomplicated colonic diverticulosis is noted. No acute diverticulitis is noted. Abdominal Wall: Intact. Retroperitoneum: No evidence of adenopathy in the retrocrural, para-aortic, or deep pelvic regions. Bladder: There is a 2 cm calcified urinary bladder stone. Reproductive Organs: The prostate gland is markedly enlarged. Inguinal: The inguinal region is unremarkable without evidence of adenopathy. Small left inguinal he rnia containing only fat is noted. Bony Structures: Degenerative changes and scoliosis of the thoracolumbar spine are noted. Multilevel spinal stenoses are noted within the lumbar spine. Right total hip arthroplasty is noted. CONCLUSION: 1. Markedly enlarged prostate. 2. 2 cm calcified urinary bladder stone. 3. Uncomplicated colonic diverticulosis. 4. 18 mm left adrenal nodule consistent with probable adrenal adenoma. 5. Cardiomegaly and coronary artery calcifications. 6. Degenerative changes, scoliosis and multilevel spinal stenoses within lumbar spine. 7. Small left inguinal hernia containing only fat. 8. Posterior bibasilar atelectatic changes. 9. Tiny bilateral pleural effusions. Electronically signed by: Ralph Dale MD 05/26/2018 1:54 PM EDT
--- NOTE | 2018-05-26 15:55 | P.HPIM ---
History of Present Illness Primary Care Physician: No Primary Care Physician Chief Complaint: Dysuria History of Present Illness: This patient is an 87-year-old male with a diagnosis of hypertension. As per the patient he only takes blood pressure medications however is on sure about which medications he takes. He presents to our emergency department today with complaints of dysuria that have been ongoing for a week. Initially the patient went to [facility] and was evaluated and diagnosed with a urinary tract infection. He was given antibiotics however is on sure about which medication he took. His symptoms continued and he now comes back into the emergency department for evaluation of dysuria. He denies having any fevers or chills. He admits to urinary frequency however has not had any difficulty with urinary stream or initiating. He denies having any history of atrial fibrillation. On my evaluation the patient is denying any chest pain, no abdominal pain, no shortness of breath. He is unsure if he has noticed any blood in his urine as the patient states he has very poor vision. He has no history of prior bleeding in the past. He also states that he has been feeling weak over the past week and has been having difficulty with ambulation because he feels weak. Past medical history hypertension Family history no significant past medical history that runs in the family as per the patient. Social history the patient admits to an extensive tobacco smoking history. Last cigarette was 3 weeks ago. Surgical history right hip replacement approximately 10 years ago Allergies no known drug allergies Review of Systems All other systems reviewed negative except as stated in HPI FORMERLY [facility], [facility] - History History Provided By: Patient - Medical History Medical History: Medical History (Last Reviewed 05/26/18 @ 12:16 by LALY Chaney) Hypertension - Surgical History Surgical History: Surgical History (Last Reviewed 05/26/18 @ 12:16 by LALY Chaney) History of right hip replacement - Tobacco History Smoking Status: Former smoker - Alcohol History How Often Do You Have a Drink Containing Alcohol: 2 to 4 times a month - Immunization History Tetanus Immunization: Unsure Hx Influenza Vaccine This Season: No Medications and Allergies Active Medications: Active Medications Sodium Chloride (Ns Inj) 1,000 mls @ 0 mls/hr IV.SIG BOLUS TAY Last Infusion: 05/26/18 15:25 Dose: Infused Ceftriaxone Sodium 1,000 mg/ (Sodium Chloride) 100 mls @ 200 mls/hr IV.SIG Q24H TAY Metoprolol Tartrate (Lopressor) 12.5 mg PO BID TAY Sodium Chloride (Ns Flush) 2 ml IV.FLUSH PRN PRN PRN Reason: FLUSH AFTER USING IV ACCESS Last Admin: 05/26/18 14:15 Dose: 2 ml Allergies Allergy/AdvReac Type Severity Reaction Status Date / Time No Known Allergies Allergy Unverified 05/26/18 12:05 Home Medications Medication Instructions Recorded Confirmed Type sulfamethoxazole-trimethoprim 1 tab PO BID 05/26/18 05/26/18 History [Bactrim DS] tramadol 50 mg PO Q6H PRN 05/26/18 05/26/18 History Exam Vital signs: Vital Signs 05/26/18 11:56 05/26/18 12:00 05/26/18 12:03 Temperature 97.3 F L Pulse Rate 97 H 83 87 Respiratory Rate 22 16 Blood Pressure 142/61 H 136/70 Pulse Oximetry 98 95 05/26/18 12:13 Temperature Pulse Rate Respiratory Rate Blood Pressure Pulse Oximetry 97 Intake & Output 05/25/18 05/26/18 05/26/18 18:59 06:59 18:59 Intake Total 1100 / 1100 Balance 1100 / 1100 Weight 72.575 kg Intake: IV 1100 / 1100 NS Inj 1,000 ML @ Wide Open IV. 1000 / 1000 SIG BOLUS [facility] Rx#:[id number] Rocephin Inj 1,000 MG In NS Inj 100 / 100 100 ML @ 200 mls/hr IV.SIG Q12H [facility] Rx#:[id number] Narrative: General patient in no acute distress, the patient states he is weak when ambulating. HEENT extraocular movements are intact, clear oropharyngeal mucosa, no JVD Cardiovascular S1-S2 audible, irregularly irregular rhythm, no chest pain on my evaluation. Respiratory clear to auscultation bilaterally Abdomen soft, nontender, nondistended, normal bowel sounds Extremities no edema 2+ distal pulses in bilateral upper and lower extremities Neuro patient can move all 4 extremities sensation appears to be intact bilaterally. Results - Labs CBC & Chem 7: 05/26/18 12:03 05/26/18 12:30 Labs: Short CBC 05/26/18 Range/Units 12:03 WBC 10.2 (4.0-11.0) th/mm3 Hgb 13.6 (13.0-17.0) gm/dL Hct 40.1 (39.0-51.0) % Plt Count 260 (150-450) th/mm3 BMP 05/26/18 12:30 Sodium 134 L Potassium 4.4 Chloride 98 Carbon Dioxide 27.2 BUN 24 H Creatinine 0.95 Calcium 9.7 Cardiac Enzymes 05/26/18 Range/Units 12:30 Total Creatine Kinase 40 (39-308) U/L Troponin I 0.03 (0.02-0.05) ng/mL Liver Function 05/26/18 Range/Units 12:30 Total Bilirubin 1.4 H (0.2-1.0) mg/dL AST 47 H (15-37) U/L ALT 58 (12-78) U/L Alkaline Phosphatase 353 H (45-117) U/L Albumin 2.9 L (3.4-5.0) g/dL Urine 05/26/18 Range/Units 12:40 Urine Color Shriley (Yellw/Straw) Urine Clarity Cloudy H (Clear) Urine pH 6.0 (5.0-8.5) Ur Specific [place] 1.019 (1.002-1.035) Urine Protein 100 H (Neg-Trace) mg/dL Urine Glucose (UA) Negative (Negative) mg/dL - Imaging Impressions Abdomen/Pelvis CT 05/26/18 12:11 CONCLUSION: 1. Markedly enlarged prostate. 2. 2 cm calcified urinary bladder stone. 3. Uncomplicated colonic diverticulosis. 4. 18 mm left adrenal nodule consistent with probable adrenal adenoma. 5. Cardiomegaly and coronary artery calcifications. 6. Degenerative changes, scoliosis and multilevel spinal stenoses within lumbar spine. 7. Small left inguinal hernia containing only fat. 8. Posterior bibasilar atelectatic changes. 9. Tiny bilateral pleural effusions. Chest X-Ray 05/26/18 12:11 CONCLUSION: 1. Cardiomegaly. 2. Bilateral rotator cuff pathology and significant degenerative changes involving the shoulders. 3. No focal infiltrate or pulmonary vascular congestion. 4. Degenerative changes throughout the thoracic spine. Caprini VTE Risk Assessment Caprini VTE Risk Assessment: Moderate/High Risk (score >= 2) Caprini Risk Assessment Model: Point Value = 1 Point Value = 2 Point Value = 3 Point Value = 5 Age 41-60 Minor surgery BMI > 25 kg/m2 Swollen legs Varicose veins or History of unexplained or recurrent spontaneous Oral contraceptives or hormone replacement Sepsis (< 1 month) Serious lung disease, including pneumonia (< 1 month) Abnormal pulmonary function Acute myocardial infarction Congestive heart failure (< 1 month) History of inflammatory bowel disease Medical patient at bed rest Age 61-74 Arthroscopic surgery Major open surgery (> 45 min) Laparoscopic surgery (> 45 min) Malignancy Confined to bed (> 72 hours) Immobilizing plaster cast Central venous access Age >= 75 History of VTE Family history of VTE Factor V Leiden Prothrombin [id number] Lupus anticoagulant Anticardiolipin antibodies Elevated serum homocysteine Heparin-induced thrombocytopenia Other congenital or acquired thrombophilia Stroke (< 1 month) Elective arthroplasty Hip, pelvis, or leg fracture Acute spinal cord injury (< 1 month) Prophylaxis Regimen: Total Risk Factor Score Risk Level Prophylaxis Regimen 0-1 Low Early ambulation 2 Moderate Order ONE of the following: *Sequential Compression Device (SCD) *Heparin 5000 units SQ BID 3-4 Higher Order ONE of the following medications: *Heparin 5000 units SQ TID *Enoxaparin/Lovenox 40 mg SQ daily (WT < 150 kg, CrCl > 30 mL/min) *Enoxaparin/Lovenox 30 mg SQ daily (WT < 150 kg, CrCl > 10-29 mL/min) *Enoxaparin/Lovenox 30 mg SQ BID (WT < 150 kg, CrCl > 30 mL/min) AND/OR *Sequential Compression Device (SCD) 5 or more Highest Order ONE of the following medications: *Heparin 5000 units SQ TID (Preferred with Epidurals) *Enoxaparin/Lovenox 40 mg SQ daily (WT < 150 kg, CrCl > 30 mL/min) *Enoxaparin/Lovenox 30 mg SQ daily (WT < 150 kg, CrCl > 10-29 mL/min) *Enoxaparin/Lovenox 30 mg SQ BID (WT < 150 kg, CrCl > 30 mL/min) AND *Sequential Compression Device (SCD) Assessment and Plan - Plan This patient is an 87-year-old male with a diagnosis of hypertension. The patient presented with complaints of weakness as well has dysuria. The patient was found to be in atrial fibrillation in the emergency department. As per the patient has no history of atrial fibrillation. 1. Atrial fibrillation new onset 2. Urinary tract infection 3. Hypertension The patient will be placed in observation. Telemetry Chads score is 2. EKG shows atrial fibrillation with T wave inversions in V1 and V2. Cardiac enzymes and troponins are negative. Cardiology consult has been placed. The patient will be started on metoprolol. A discussion was held with the patient regarding anticoagulation and he is not sure if he wants to start anticoagulate him at this time. He understands the risks and benefits of being on anticoagulation and would like a time to think about it. He will be started on aspirin today. Will follow with recommendations from cardiology. Follow-up urine cultures. Continue IV Rocephin. Labs show a normal WBC count, urinalysis consistent with a urinary tract infection 4. Enlarged prostate Patient will likely benefit from being on Flomax, his large prostate is likely contributing to his a urinary tract infection. 5. Left adrenal mass Imaging showing a 18 mm left adrenal nodule consistent with an adrenal adenoma. This will need to be followed up outpatient after the patient is discharged. 6. Cardiomegaly 2D echocardiogram will be ordered to evaluate for ejection fraction as well as evaluation of the valves. 7. Left inguinal hernia No hernia seen on my evaluation. Patient can follow-up outpatient with surgery if needed after discharge. Heparin for DVT prophylaxis. Patient is tolerating a p.o. diet.
[2018-05-26] MEDS: Metoprolol Tartrate 25 MG Tablet PO SCH ×2 (17:46→21:20)
[2018-05-26] MEDS ORDERED: Magnesium Sulfate Inj 4 GM in Sodium Chlor 0.9% Inj 100 ML IV.SIG ONE (20:20)
[2018-05-26] MEDS: Heparin - SQ 10,000 UNITS/ML Vial SQ SCH (21:19)
[2018-05-27 07:43] LABS: Baso % (Auto) 0.5 % (0.0-2.0); Eos # (Auto) 0.1 th/mm3 (0.0-0.4); Eos % (Auto) 1.7 % (0.0-4.0); Hematocrit 34.8 % (39.0-51.0); Hemoglobin 12.2 gm/dL (13.0-17.0); Lymph # (Auto) 0.7 th/mm3 (1.0-4.8); Lymph % (Auto) 9.3 % (9.0-44.0); Mean Corpuscular HGB Conc 34.9 % (32.0-36.0); Mean Corpuscular Hemoglobin 32.8 pg (27.0-34.0); Mean Platelet Volume 9.6 fL (7.0-11.0); Mono # (Auto) 0.9 th/mm3 (0.0-0.9); Mono % (Auto) 12.6 % (0.0-8.0); Neut # (Auto) 5.6 th/mm3 (1.8-7.7); Neut % (Auto) 75.9 % (16.0-70.0); Platelet Count 251 th/mm3 (150-450); White Blood Count 7.4 th/mm3 (4.0-11.0)
[2018-05-27 08:04] LABS: Anion Gap 8 meq/L (5-15); Blood Urea Nitrogen 22 mg/dL (7-18); Calcium 8.4 mg/dL (8.5-10.1); Carbon Dioxide 26.1 meq/L (21.0-32.0); Chloride 102 meq/L (98-107); Glomerular Filtration Rate Greater Than 89 mL/min (>89); Glucose,Random 94 mg/dL (74-106); Magnesium 2.1 mg/dL (1.5-2.5); Potassium 4.2 meq/L (3.5-5.1); Sodium 136 meq/L (136-145)
[2018-05-27 09:29] LABS: Chol/HDL Ratio 2.33 Ratio; HDL Cholesterol 32.5 mg/dL (40.0-60.0)
--- NOTE | 2018-05-27 09:47 | P.PN ---
Subjective Interval history: Follow-up for UTI, and new diagnosis of A. fib/CHF. Patient reports feeling only slightly better today. Reports continued dysuria with some urinary retention. He denies fevers or chills. He complains of continued generalized weakness and fatigue. He had episodes of epigastric heartburn overnight, relieved after receiving Tums. Denies any headache, lightheadedness, dizziness, chest pain, shortness of breath, abdominal pain, nausea/vomiting, or diarrhea. He does report recent weight loss of probably over 50lbs this year. He states he hardly has an appetite. He is unable to tell the color of his stool because of his poor vision. He believes he had a colonoscopy many years ago, at least 10 -20years, does not recall any abnormal results. Discussed the patient's new diagnosis of afib and CHF. The patient agrees to medical management, however does not want any further ischemic work up. After long discussion, the patient requests to be DNR. Physical Exam Vital signs: Vital Signs 05/26/18 11:56 05/26/18 12:00 05/26/18 12:03 Temperature 97.3 F L Pulse Rate 97 H 83 87 Respiratory Rate 22 16 Blood Pressure 142/61 H 136/70 Pulse Oximetry 98 95 05/26/18 12:13 05/26/18 16:00 05/26/18 17:38 Temperature 98.7 F Pulse Rate 86 87 Respiratory Rate 18 18 Blood Pressure 119/66 111/61 Pulse Oximetry 97 97 05/26/18 19:00 05/26/18 20:00 05/27/18 00:00 Temperature 98.4 F 97.4 F L Pulse Rate 118 H 83 Respiratory Rate 19 18 Blood Pressure 106/56 L 140/79 Pulse Oximetry 93 L 93 L 94 L 05/27/18 04:00 05/27/18 08:29 Temperature 98.2 F 98.1 F Pulse Rate 76 90 Respiratory Rate 18 16 Blood Pressure 138/64 126/67 Pulse Oximetry 95 94 L Intake & Output 05/26/18 05/27/18 05/27/18 18:59 06:59 18:59 Intake Total 1100 / 1100 108 / 108 Output Total 600 / 600 Balance 1100 / 1100 -492 / -492 Weight 72.575 kg 71.83 kg Intake: IV 1100 / 1100 108 / 108 Magnesium Sulfate Inj 4 GM In 108 / 108 NS Inj 100 ML @ 25 mls/hr IV. SIG ONCE ONE Rx#:[id number] NS Inj 1,000 ML @ Wide Open IV. 1000 / 1000 SIG BOLUS TAY Rx#:[id number] Rocephin Inj 1,000 MG In NS Inj 100 / 100 100 ML @ 200 mls/hr IV.SIG Q12H TAY Rx#:[id number] Output: Urine 600 / 600 Other: # Voids 2 Date of Last Bowel Movement 05/25/18 Weight On Admission 72.575 kg Narrative: GENERAL: Thin elderly male patient in NAD. SKIN: Warm and dry. No rash. HEENT: Normocephalic. Atraumatic. Pupils equal and round. Mucous membranes pink and moist. CARDIOVASCULAR: Irregular rate and rhythm. 1/6 systolic murmur. RESPIRATORY: No accessory muscle use. Slightly diminished at bilateral bases with decreased inspiratory effort, otherwise clear to auscultation. Breath sounds equal bilaterally. GASTROINTESTINAL: Scaphoid abdomen, soft, non-tender, nondistended. Normoactive bowel sounds x4. MUSCULOSKELETAL: No obvious deformities. Extremities without clubbing, cyanosis , or edema. NEUROLOGICAL: Awake and alert. No obvious cranial nerve deficits. Motor grossly within normal limits. Moving all extremities spontaneously. Normal speech. PSYCHIATRIC: Appropriate mood and affect; insight and judgment normal. Results - Labs CBC & Chem 7: 05/27/18 07:15 05/27/18 07:15 Laboratory Results - last 24 hr 05/26/18 05/26/18 05/26/18 12:03 12:30 12:30 WBC 10.2 RBC 4.17 L Hgb 13.6 Hct 40.1 MCV 96.1 MCH 32.6 MCHC 33.9 RDW 14.3 Plt Count 260 MPV 9.4 Neut % (Auto) 85.2 H Lymph % (Auto) 4.6 L [place] % (Auto) 9.1 H Eos % (Auto) 0.7 Baso % (Auto) 0.4 Neut # (Auto) 8.7 H Lymph # (Auto) 0.5 L [place] # (Auto) 0.9 Eos # (Auto) 0.1 Baso # (Auto) 0.0 WBC Differential . Differential Comment Auto diff final PT 12.1 H INR 1.2 APTT 32.0 H Sodium 134 L Potassium 4.4 Chloride 98 Carbon Dioxide 27.2 Anion Gap 9 BUN 24 H Creatinine 0.95 Estimated GFR 75 L Random Glucose 91 Calcium 9.7 Magnesium 1.5 Total Bilirubin 1.4 H AST 47 H ALT 58 Alkaline Phosphatase 353 H Total Creatine Kinase Troponin I Total Protein 7.0 Albumin 2.9 L Triglycerides Cholesterol LDL Cholesterol, Calc HDL Cholesterol Cholesterol/HDL Ratio TSH Free T4 Urine Color Urine Clarity Urine pH Ur Specific [place] Urine Protein Urine Glucose (UA) Urine Ketones Urine Occult Blood Urine Nitrate Urine Bilirubin Urine Urobilinogen Ur Leukocyte Esterase Urine RBC Urine WBC Ur Squamous Epith Cells Amorphous Sediment Urine Mucus Micro UA Comment Ur Microscopic Review Urine Culture Comments Blood Type Blood Type Recheck Antibody Screen 05/26/18 05/26/18 05/26/18 12:30 12:30 12:30 WBC RBC Hgb Hct MCV MCH MCHC RDW Plt Count MPV Neut % (Auto) Lymph % (Auto) [place] % (Auto) Eos % (Auto) Baso % (Auto) Neut # (Auto) Lymph # (Auto) [place] # (Auto) Eos # (Auto) Baso # (Auto) WBC Differential Differential Comment PT INR APTT Sodium Potassium Chloride Carbon Dioxide Anion Gap BUN Creatinine Estimated GFR Random Glucose Calcium Magnesium Total Bilirubin AST ALT Alkaline Phosphatase Total Creatine Kinase 40 Troponin I 0.03 Total Protein Albumin Triglycerides Cholesterol LDL Cholesterol, Calc HDL Cholesterol Cholesterol/HDL Ratio TSH 0.781 Free T4 1.21 Urine Color Urine Clarity Urine pH Ur Specific [place] Urine Protein Urine Glucose (UA) Urine Ketones Urine Occult Blood Urine Nitrate Urine Bilirubin Urine Urobilinogen Ur Leukocyte Esterase Urine RBC Urine WBC Ur Squamous Epith Cells Amorphous Sediment Urine Mucus Micro UA Comment Ur Microscopic Review Urine Culture Comments Blood Type A Positive Blood Type Recheck Required Antibody Screen Negative 05/26/18 05/26/18 05/27/18 12:30 12:40 07:15 WBC 7.4 RBC 3.70 L Hgb 12.2 L Hct 34.8 L MCV 94.0 MCH 32.8 MCHC 34.9 RDW 14.0 Plt Count 251 MPV 9.6 Neut % (Auto) 75.9 H Lymph % (Auto) 9.3 [place] % (Auto) 12.6 H Eos % (Auto) 1.7 Baso % (Auto) 0.5 Neut # (Auto) 5.6 Lymph # (Auto) 0.7 L [place] # (Auto) 0.9 Eos # (Auto) 0.1 Baso # (Auto) 0.0 WBC Differential . Differential Comment Auto diff final PT INR APTT Sodium Potassium Chloride Carbon Dioxide Anion Gap BUN Creatinine Estimated GFR Random Glucose Calcium Magnesium Total Bilirubin AST ALT Alkaline Phosphatase Total Creatine Kinase Troponin I Total Protein Albumin Triglycerides Cholesterol LDL Cholesterol, Calc HDL Cholesterol Cholesterol/HDL Ratio TSH Cancelled Free T4 Urine Color Shirley Urine Clarity Cloudy H Urine pH 6.0 Ur Specific [place] 1.019 Urine Protein 100 H Urine Glucose (UA) Negative Urine Ketones Trace H Urine Occult Blood Negative Urine Nitrate Negative Urine Bilirubin Negative Urine Urobilinogen 4 or greater Ur Leukocyte Esterase Small H Urine RBC 26 H Urine WBC 68 H Ur Squamous Epith Cells 2 Amorphous Sediment Rare H Urine Mucus Few H Micro UA Comment Culture indicated Ur Microscopic Review Not Reportable Urine Culture Comments Culture indicated Blood Type Blood Type Recheck Antibody Screen 05/27/18 05/27/18 07:15 07:15 WBC RBC Hgb Hct MCV MCH MCHC RDW Plt Count MPV Neut % (Auto) Lymph % (Auto) [place] % (Auto) Eos % (Auto) Baso % (Auto) Neut # (Auto) Lymph # (Auto) [place] # (Auto) Eos # (Auto) Baso # (Auto) WBC Differential Differential Comment PT INR APTT Sodium 136 Potassium 4.2 Chloride 102 Carbon Dioxide 26.1 Anion Gap 8 BUN 22 H Creatinine 0.60 Estimated GFR Greater than 89 Random Glucose 94 Calcium 8.4 L D Magnesium 2.1 D Total Bilirubin AST ALT Alkaline Phosphatase Total Creatine Kinase Troponin I Total Protein Albumin Triglycerides 67 Cholesterol 76 L LDL Cholesterol, Calc 30 HDL Cholesterol 32.5 L Cholesterol/HDL Ratio 2.33 TSH Free T4 Urine Color Urine Clarity Urine pH Ur Specific [place] Urine Protein Urine Glucose (UA) Urine Ketones Urine Occult Blood Urine Nitrate Urine Bilirubin Urine Urobilinogen Ur Leukocyte Esterase Urine RBC Urine WBC Ur Squamous Epith Cells Amorphous Sediment Urine Mucus Micro UA Comment Ur Microscopic Review Urine Culture Comments Blood Type Blood Type Recheck Antibody Screen - Imaging Impressions Abdomen/Pelvis CT 05/26/18 12:11 CONCLUSION: 1. Markedly enlarged prostate. 2. 2 cm calcified urinary bladder stone. 3. Uncomplicated colonic diverticulosis. 4. 18 mm left adrenal nodule consistent with probable adrenal adenoma. 5. Cardiomegaly and coronary artery calcifications. 6. Degenerative changes, scoliosis and multilevel spinal stenoses within lumbar spine. 7. Small left inguinal hernia containing only fat. 8. Posterior bibasilar atelectatic changes. 9. Tiny bilateral pleural effusions. Chest X-Ray 05/26/18 12:11 CONCLUSION: 1. Cardiomegaly. 2. Bilateral rotator cuff pathology and significant degenerative changes involving the shoulders. 3. No focal infiltrate or pulmonary vascular congestion. 4. Degenerative changes throughout the thoracic spine. Assessment and Plan - Plan 87-year-old male with history of hypertension, recent UTI on antibiotic x1 week , presents with generalized weakness and dysuria. In the ER, was found to have UTI and new onset A. fib. Generalized weakness: Suspect multifactorial with advanced age, deconditioning, UTI, and new onset A. fib/CHF. -Treat infection, see below -Consult PT, patient will likely benefit from rehab placement, patient agrees -Patient wishes to be DNR (after discussion with myself and Dr. Johnson) UTI/Cystitis, failed outpatient: Recently on antibiotics x1 week after visit to [facility]. -Urinalysis with leuks and WBCs -Continue on IV Rocephin -Urine culture with mixed jessica however unreliable as patient has been on antibiotics x1 week -Patient still symptoms, will give trial of pyridium New onset atrial fibrillation: With intermittent episodes of RVR, heart rate up to 118. -Started on metoprolol 12.5 mg bid, caution with borderline hypertension -Monitor on telemetry -Chads 2 Vasc score of at least 4, started on Eliquis, discussed risks -Cardiology consulted, appreciate assistance New onset ischemic CHF: Suspect most likely ischemic with NSTEMI, however patient declining Lexiscan/Cath -Echocardiogram with severely reduced systolic function, EF 25-30% -Cardiology consulted, discussed with Dr. Johnson, appreciate assistance -Started on lisinopril, metoprolol -No significant signs of fluid overload at this time NSTEMI: troponins increased from 0.03 to 0.07. Patient with complaints of chest pain upon admission. -given aspirin -cardiology consulted, however patient ultimately decided to not undergo cardiac catheterization -no further troponins trended as patient declined intervention, chest pain resolved Weight Loss/Protein-Calorie Malnutrition: patient reports probably 50lbs weight loss over the past year with poor appetite -hemoccult negative -start on Ensure shakes tid -referral to outpatient GI for endoscopy (patient with complaints of frequent heartburn) -monitor CBC BPH: CT abd/pelvis with markedly enlarged prostate -patient with intermittent complaints of urinary retention -will start on flomax 0.4mg daily -outpatient f/up with urology Adrenal Nodule: incidentally found on abdominal CT -suspect adrenal adenoma -patient informed of results, recommend outpatient f/up DVT Prophylaxis: Eliquis Code Status: DNR Discharge Planning: Likely needs placement. Continue to treat for UTI with IV abx, failed outpatient. Possible discharge in 1-2 days.
[2018-05-27] MEDS: Metoprolol Tartrate 25 MG Tablet PO SCH ×2 (09:59→21:43)
[2018-05-27] MEDS: Heparin - SQ 10,000 UNITS/ML Vial SQ SCH (10:00)
--- NOTE | 2018-05-27 10:48 | ECHRPT ---
Indication: Paroxysmal atrial fibrillation CONCLUSIONS The left ventricular systolic function is severely reduced with an estimated ejection fraction in th e range of 25-30%. Wall thickness is measured at the upper limits of normal. Wall thickness is normal. Moderately dilated left ventricle. The left atrial size is cnpgsios-wi-haiozmxx dilated. The right atrial size is khqxuqor-cj-ngvzxgas dilated. The aortic root and proximal ascending aorta are not well visualized. Moderate mitral valve regurgitation. There is moderate tricuspid regurgitation. The estimated pulmonary arterial pressure is 41.6 mmHg. BP: / HR: 82 Rhythm: Other MEASUREMENTS (Male / Female) Normal Values Technical Quality:Good 2D ECHO LV Diastolic Diameter PLAX 5.6 cm 4.2 - 5.9 / 3.9 - 5.3 cm LV Systolic Diameter PLAX 4.9 cm IVS Diastolic Thickness 1.1 cm 0.6 - 1.0 / 0.6 - 0.9 cm LVPW Diastolic Thickness 1.1 cm 0.6 - 1.0 / 0.6 - 0.9 cm LV Relative Wall Thickness 0.4 LVOT Diameter 1.9 cm M-MODE Aortic Root Diameter MM 3.5 cm LA Systolic Diameter MM 4.8 cm LA Ao Ratio MM 1.4 AV Cusp Separation MM 2.0 cm DOPPLER AV Peak Velocity 110.0 cm/s AV Peak Gradient 4.8 mmHg LVOT Peak Velocity 65.2 cm/s LVOT Peak Gradient 1.7 mmHg AV Area Cont Eq pk 1.7 cm MR Peak Velocity 473.0 cm/s MR Peak Gradient 89.5 mmHg TR Peak Velocity 281.0 cm/s TR Peak Gradient 31.6 mmHg Right Atrial Pressure 10.0 mmHg Pulmonary Artery Systolic Pressu 41.6 mmHg Right Ventricular Systolic Press 41.6 mmHg PV Peak Velocity 98.6 cm/s PV Peak Gradient 3.9 mmHg FINDINGS LEFT VENTRICLE The left ventricular systolic function is severely reduced with an estimated ejection fraction in th e range of 25-30%. Wall thickness is measured at the upper limits of normal. Wall thickness is normal. Moderately dilated left ventricle. RIGHT VENTRICLE Normal right ventricular size and systolic function. LEFT ATRIUM The left atrial size is hbagqemk-oz-ywkuqhce dilated. RIGHT ATRIUM The right atrial size is suiysewm-zv-mlqpsifr dilated. ATRIAL SEPTUM Normal atrial septal thickness without atrial level shunting by limited color doppler interrogation. AORTA The aortic root and proximal ascending aorta are not well visualized. The aortic root and proximal ascending aorta are normal in size on limited imaging. MITRAL VALVE Moderate mitral valve regurgitation. AORTIC VALVE Trileaflet aortic valve. No aortic valve stenosis or regurgitation. TRICUSPID VALVE There is moderate tricuspid regurgitation. The estimated pulmonary arterial pressure is 41.6 mmHg. PULMONARY VALVE No pulmonary valve regurgitation or stenosis. VESSELS The inferior vena cava is normal in size. PERICARDIUM No pericardial effusion. Carlitos Brady MD, FACC (Electronically Signed) Final Date:27 May 2018 10:47
[2018-05-27 11:42] LABS: Troponin I 0.07 ng/mL (0.02-0.05)
--- NOTE | 2018-05-27 11:54 | MB ---
cc: Brady Johnson MD DATE: 05/26/2018 REASON FOR CONSULTATION: Atrial fibrillation. HISTORY OF PRESENT ILLNESS: Ralph Bermudez is an 87-year-old man admitted to the hospital with dysuria and found to have a urinary tract infection. He was found incidentally to be in atrial fibrillation and has now had an echocardiogram and Doppler study showing dilated left ventricle with an EF of 25% to 30% with moderate mitral regurgitation and moderate tricuspid regurgitation. The patient did not know he had any heart disease. He does have shortness of breath with exertion and denies any typical angina. He has been feeling very weak and tired. It has been so bad that it made him quit smoking a few weeks ago. Shortness of breath has been particularly severe for a few months. He denies any edema, orthopnea, or PND. He has had no syncope. He has had diminished appetite with significant weight loss. He hurts all over, particularly his bones. He says he is legally blind from macular degeneration. Lives alone in an apartment here in [place]. Originally, he is from [place]. He has lived here for the past 5 years. He has 4 children but they are all out of state. PAST MEDICAL HISTORY: He has had a right total hip replacement, a left rotator cuff repair, hypertension. He is legally blind from macular degeneration. ALLERGIES: NONE. SOCIAL HISTORY: Notable for lifelong smoking, alcohol only occasional. FAMILY HISTORY: Noncontributory. REVIEW OF SYSTEMS: Negative except as mentioned above. PHYSICAL EXAMINATION: GENERAL: Elderly white male resting adequately and does not appear to be in acute distress. VITAL SIGNS: Charted. HEENT: Unremarkable. NECK: Negative for bruits or JVD. LUNGS: Bibasilar rhonchi. CARDIAC: S1, S2, irregular rate and rhythm with a 1-2/6 systolic murmur and a soft S3. ABDOMEN: Soft, nontender. EXTREMITIES: No peripheral edema. Femoral pulses are intact. Left pedal pulse is severely reduced. Right dorsalis pedis pulse is palpable. LABORATORY DATA: His EKG shows atrial fibrillation with a controlled ventricular rate and PVCs. Echo was markedly abnormal. Chest x-ray shows cardiomegaly. IMPRESSION: An 87-year-old man with a severe cardiomyopathy, most likely ischemic cardiomyopathy, but we do not have any direct evidence of that. He has never been noted to have a myocardial infarction. He is very old and frail. He has had significant weight loss. He has atrial fibrillation, duration of which is unclear, probably not acute. RECOMMENDATIONS: I had a long discussion with the patient as to what further workup he would accept or would like to have. He would like to be a DO NOT RESUSCITATE. He does not want to have any diagnostic invasive procedures. He is willing to go on heart medicines if these could help improve his quality of life; so, we will add an RON inhibitor on top of his beta mis. He will accept anticoagulation to prevent strokes. We will start Eliquis 5 b.i.d. We will titrate his medication as while he is here in the hospital. Further therapy to be determined. MD ROLLY Piña/ts , 11:32 AM , 11:40 AM
[2018-05-27] MEDS: Lisinopril 5 MG Tablet PO SCH ×2 (13:48→21:43)
--- NOTE | 2018-05-27 15:29 | ECG ---
Date Performed: 05/26/2018 Time Performed: 12:16:37 PTAGE: 87 years EKG: ATRIAL FIBRILLATION WITH ABERRANT CONDUCTION OR VENTRICULAR PREMATURE COMPLEXES SEPTAL MYOC ARDIAL INFARCTION ABNORMAL ECG NO PREVIOUS TRACING DOCTOR: Shey Jean Baptiste Interpretating Date/Time 05/27/2018 15:25:36
[2018-05-27 18:18] LABS: Hemoglobin A1c 5.7 % (4.3-6.0)
[2018-05-28] MEDS: Lisinopril 5 MG Tablet PO SCH ×2 (08:09→21:13)
[2018-05-28] MEDS: Metoprolol Tartrate 25 MG Tablet PO SCH ×2 (08:10→21:13)
--- NOTE | 2018-05-28 09:20 | P.PNCA ---
Subjective Interval history: C/o hurting all over and weak. Unable to sit up. No CV complaints Medications and Allergies Active Medications: Active Medications Apixaban (Eliquis) 5 mg PO BID [facility] Last Admin: 05/28/18 08:09 Dose: 5 mg Aspirin (Aspirin Chew) 81 mg PO DAILY [facility] Last Admin: 05/28/18 08:09 Dose: 81 mg Sodium Chloride (Ns Inj) 1,000 mls @ 0 mls/hr IV.SIG BOLUS [facility] Last Infusion: 05/26/18 15:25 Dose: Infused Ceftriaxone Sodium 1,000 mg/ (Sodium Chloride) 100 mls @ 200 mls/hr IV.SIG Q24H [facility] Last Infusion: 05/27/18 13:30 Dose: Infused Lisinopril (Prinivil) 5 mg PO BID [facility] Last Admin: 05/28/18 08:09 Dose: 5 mg Metoprolol Tartrate (Lopressor) 12.5 mg PO BID [facility] Last Admin: 05/28/18 08:10 Dose: 12.5 mg Sodium Chloride (Ns Flush) 2 ml IV.FLUSH PRN PRN PRN Reason: FLUSH AFTER USING IV ACCESS Last Admin: 05/26/18 21:22 Dose: 2 ml Tamsulosin HCl (Flomax) 0.4 mg PO DAILY [facility] Last Admin: 05/28/18 08:09 Dose: 0.4 mg Allergies Allergy/AdvReac Type Severity Reaction Status Date / Time No Known Allergies Allergy Unverified 05/26/18 12:05 Home Medications Medication Instructions Recorded Confirmed Type sulfamethoxazole-trimethoprim 1 tab PO BID 05/26/18 05/26/18 History [Bactrim DS] tramadol 50 mg PO Q6H PRN 05/26/18 05/26/18 History Physical Exam Vital signs: Vital Signs 05/27/18 11:38 05/27/18 12:55 05/27/18 15:56 Temperature 98.0 F 97.9 F 97.6 F Pulse Rate 54 L 67 89 Respiratory Rate 20 16 18 Blood Pressure 102/68 99/51 L 124/84 Pulse Oximetry 92 L 93 L 97 05/27/18 20:00 05/28/18 00:00 05/28/18 03:34 Temperature 97.9 F 98.4 F 98.4 F Pulse Rate 99 H 87 84 Respiratory Rate 17 17 17 Blood Pressure 100/67 112/76 121/67 Pulse Oximetry 93 L 93 L 96 05/28/18 08:00 Temperature 97.9 F Pulse Rate 82 Respiratory Rate 18 Blood Pressure 134/73 Pulse Oximetry 91 L Intake & Output 05/27/18 05/28/18 05/28/18 18:59 06:59 18:59 Intake Total 100 / 100 Balance 100 / 100 Weight 72.575 kg Intake: IV 100 / 100 Rocephin Inj 1,000 MG In NS Inj 100 / 100 100 ML @ 200 mls/hr IV.SIG Q24H [facility] Rx#:[id number] Other: # Voids 3 4 Date of Last Bowel Movement 05/27/18 05/27/18 Narrative: Awake Chest diminished BS CV S1S2 RRR Abd soft No edema Results 05/27/18 07:15 05/27/18 07:15 Cardiac Enzymes 05/26/18 05/26/18 05/27/18 Range/Units 12:30 12:30 07:15 AST 47 H (15-37) U/L Troponin I 0.03 0.07 H (0.02-0.05) ng/mL Coagulation 05/26/18 Range/Units 12:30 PT 12.1 H (9.8-11.6) sec APTT 32.0 H (24.3-30.1) sec Lipids 05/27/18 Range/Units 07:15 Triglycerides 67 (42-150) mg/dL Cholesterol 76 L (120-200) mg/dL HDL Cholesterol 32.5 L (40.0-60.0) mg/dL Cholesterol/HDL Ratio 2.33 Ratio CBC 05/26/18 05/27/18 Range/Units 12:03 07:15 WBC 10.2 7.4 (4.0-11.0) th/mm3 RBC 4.17 L 3.70 L (4.50-5.90) mil/mm3 Hgb 13.6 12.2 L (13.0-17.0) gm/dL Hct 40.1 34.8 L (39.0-51.0) % Plt Count 260 251 (150-450) th/mm3 Neut # (Auto) 8.7 H 5.6 (1.8-7.7) th/mm3 Lymph # (Auto) 0.5 L 0.7 L (1.0-4.8) th/mm3 [place] # (Auto) 0.9 0.9 (0.0-0.9) th/mm3 Eos # (Auto) 0.1 0.1 (0.0-0.4) th/mm3 Baso # (Auto) 0.0 0.0 (0.0-0.2) th/mm3 Comprehensive Metabolic Panel 05/26/18 05/27/18 Range/Units 12:30 07:15 Sodium 134 L 136 (136-145) meq/L Potassium 4.4 4.2 (3.5-5.1) meq/L Chloride 98 102 (98-107) meq/L Carbon Dioxide 27.2 26.1 (21.0-32.0) meq/L BUN 24 H 22 H (7-18) mg/dL Creatinine 0.95 0.60 (0.60-1.30) mg/dL Calcium 9.7 8.4 L D (8.5-10.1) mg/dL AST 47 H (15-37) U/L ALT 58 (12-78) U/L Alkaline Phosphatase 353 H (45-117) U/L Total Protein 7.0 (6.4-8.2) g/dL Albumin 2.9 L (3.4-5.0) g/dL Intake and Output 05/27/18 05/28/18 05/28/18 22:59 06:59 14:59 Other: # Voids 3 4 Date of Last Bowel Movement 05/27/18 Weight 72.575 kg - Imaging and Cardiology Imaging: Impressions Abdomen/Pelvis CT 05/26/18 12:11 CONCLUSION: 1. Markedly enlarged prostate. 2. 2 cm calcified urinary bladder stone. 3. Uncomplicated colonic diverticulosis. 4. 18 mm left adrenal nodule consistent with probable adrenal adenoma. 5. Cardiomegaly and coronary artery calcifications. 6. Degenerative changes, scoliosis and multilevel spinal stenoses within lumbar spine. 7. Small left inguinal hernia containing only fat. 8. Posterior bibasilar atelectatic changes. 9. Tiny bilateral pleural effusions. Chest X-Ray 05/26/18 12:11 CONCLUSION: 1. Cardiomegaly. 2. Bilateral rotator cuff pathology and significant degenerative changes involving the shoulders. 3. No focal infiltrate or pulmonary vascular congestion. 4. Degenerative changes throughout the thoracic spine. Assessment and Plan - Assessment (1) Cardiomyopathy Code(s): I42.9 - Cardiomyopathy, unspecified Status: Acute Plan: cont ACEi/BB (2) Atrial fibrillation Code(s): I48.91 - Unspecified atrial fibrillation Status: Acute Plan: rate OK (3) Weakness Code(s): R53.1 - Weakness Status: Acute Plan: He's had anorexi and weight loss - I don't know why. Too weak to care for himself. W/U and tx per primary service - Plan Dr. Myers salon stylist/ will see prn
--- NOTE | 2018-05-28 10:31 | P.CODE44 ---
Code 44 - No Change in Status - Code 44 - No Change in Status Statement: A clinical review of the case has been conducted by a member of the Utilization Review Committee. The findings indicate the patient meets criteria for inpatient status. I have reviewed the patient's medical record and my findings are as follows: This is an 87 year old male who was admitted with acute complicated severe cystitis requiring iv antibiotics after failing outpatient medical therapy. His medical course has been complicated by an acute jok-yy-zubsanenr myocardial infarction with rising ischemic biomarkers (doubling of his serum troponin) and new-onset ischemic atrial fibrillation with rapid ventricular response requiring anti-arrhythmic therapy in the form of beta blockade. In addition, he has new-onset ischemic cardiomyopathy with congestive heart failure, new EF 25% requiring initiation of ron-inhibitor and beta mis therapy. He required cardiology consultation who initially recommended ischemic work-up, but patient has declined this. By my review of the records, his active medical problems are as follows: Acute ave-fq-svawnzmpy myocardial infarction with rising troponins New-onset atrial fibrillation with rapid ventricular response requiring anti- arrhythmic therapy with beta blockade new Ischemic cardiomyopathy with an EF < 30% new congestive heart failure requiring inpatient initiation of RON inhibition and beta blockade Complicated acute cystitis failing outpatient antibiotic therapy and requiring iv antibiotic therapy I have reviewed the case with an additional member of the utilization review committee and we both independently agree the patient meets inpatient criteria. I have discussed the case with the primary attending of record and asked that if he agrees, his documentation reflects the ongoing need for inpatient admission. The information and decision has been discussed with the attending physician Prince Vargas MD and physician advisor Brandt Del Cid MD.
--- NOTE | 2018-05-28 12:58 | P.PN ---
Subjective Interval history: Follow-up for UTI, failed outpatient, new A. fib/CHF/and STEMI. Patient reports feeling slightly better today, however still very weak and fatigued. He reports continued dysuria and incomplete voiding. He states many years ago he was told he has an enlarged prostate, required Damon catheter for short period of time, but absolutely wants to avoid this if possible. He states he still urinating just more frequently. He denies any fevers or chills. He denies any chest pain today, although did have some substernal burning chest pain yesterday. Denies any shortness of breath, diaphoresis, or nausea/ vomiting. He has no other medical complaints at this time. Physical Exam Vital signs: Vital Signs 05/27/18 15:56 05/27/18 20:00 05/28/18 00:00 Temperature 97.6 F 97.9 F 98.4 F Pulse Rate 89 99 H 87 Respiratory Rate 18 17 17 Blood Pressure 124/84 100/67 112/76 Pulse Oximetry 97 93 L 93 L 05/28/18 03:34 05/28/18 08:00 05/28/18 09:00 Temperature 98.4 F 97.9 F Pulse Rate 84 82 91 H Respiratory Rate 17 18 Blood Pressure 121/67 134/73 Pulse Oximetry 96 91 L 05/28/18 12:00 Temperature 97.3 F L Pulse Rate 74 Respiratory Rate 18 Blood Pressure 90/53 L Pulse Oximetry 92 L Intake & Output 05/27/18 05/28/18 05/28/18 18:59 06:59 18:59 Intake Total 100 / 100 Output Total 400 / 400 Balance 100 / 100 -400 / -400 Weight 72.575 kg Intake: IV 100 / 100 Rocephin Inj 1,000 MG In NS Inj 100 / 100 100 ML @ 200 mls/hr IV.SIG Q24H [facility] Rx#:[id number] Output: Urine 400 / 400 Other: # Voids 3 4 Date of Last Bowel Movement 05/27/18 05/27/18 05/27/18 Narrative: GENERAL: Thin elderly male patient in [facility]. SKIN: Warm and dry. No rash. HEENT: Normocephalic. Atraumatic. Pupils equal and round. Mucous membranes pink and moist. CARDIOVASCULAR: Irregular rate and rhythm. 1/6 systolic murmur. RESPIRATORY: No accessory muscle use. Slightly diminished at bilateral bases with decreased inspiratory effort, otherwise clear to auscultation. Breath sounds equal bilaterally. GASTROINTESTINAL: Scaphoid abdomen, soft, non-tender, nondistended. Normoactive bowel sounds x4. MUSCULOSKELETAL: No obvious deformities. Extremities without clubbing, cyanosis , or edema. NEUROLOGICAL: Awake and alert. No obvious cranial nerve deficits. Motor grossly within normal limits. Moving all extremities spontaneously. Normal speech. PSYCHIATRIC: Appropriate mood and affect; insight and judgment normal. Results - Labs CBC & Chem 7: 05/27/18 07:15 05/27/18 07:15 Laboratory Results - last 24 hr 05/27/18 07:15 Hemoglobin A1c 5.7 Microbiology 05/27/18 13:00 Stool Occult Blood - Final Hemoccult negative 05/26/18 12:40 Clean Catch Urine Urine Culture - Final <10,000 cfu/mL mixed gram positive jessica - no further workup - Imaging Abdomen/Pelvis CT 05/26/18 12:11 CONCLUSION: 1. Markedly enlarged prostate. 2. 2 cm calcified urinary bladder stone. 3. Uncomplicated colonic diverticulosis. 4. 18 mm left adrenal nodule consistent with probable adrenal adenoma. 5. Cardiomegaly and coronary artery calcifications. 6. Degenerative changes, scoliosis and multilevel spinal stenoses within lumbar spine. 7. Small left inguinal hernia containing only fat. 8. Posterior bibasilar atelectatic changes. 9. Tiny bilateral pleural effusions. Chest X-Ray 05/26/18 12:11 CONCLUSION: 1. Cardiomegaly. 2. Bilateral rotator cuff pathology and significant degenerative changes involving the shoulders. 3. No focal infiltrate or pulmonary vascular congestion. 4. Degenerative changes throughout the thoracic spine. Assessment and Plan - Plan 87-year-old male with history of hypertension, recent UTI on antibiotic x1 week , presents with generalized weakness and dysuria. In the ER, was found to have UTI and new onset A. fib. Generalized weakness: Suspect multifactorial with advanced age, deconditioning, UTI, and new onset A. fib/CHF. -Treat infection, see below -Consult PT, patient will likely benefit from rehab placement, patient agrees -Patient wishes to be DNR (after discussion with myself and Dr. Johnson) UTI/Cystitis, failed outpatient: Recently on antibiotics x1 week after visit to [facility]. -Urinalysis with leuks and WBCs -Continue on IV Rocephin -Urine culture with mixed jessica however unreliable as patient has been on antibiotics x1 week -Patient still symptoms, will give trial of pyridium New onset atrial fibrillation: With intermittent episodes of RVR, heart rate up to 118. -Started on metoprolol 12.5 mg bid, caution with borderline hypertension -Monitor on telemetry -Chads 2 Vasc score of at least 4, started on Eliquis, discussed risks -Cardiology consulted, appreciate assistance New onset ischemic CHF: Suspect most likely ischemic with NSTEMI, however patient declining Lexiscan/Cath -Echocardiogram with severely reduced systolic function, EF 25-30% -Cardiology consulted, discussed with Dr. Johnson, appreciate assistance -Started on lisinopril, metoprolol -No significant signs of fluid overload at this time NSTEMI: troponins increased from 0.03 to 0.07. Patient with complaints of chest pain upon admission. -given aspirin -cardiology consulted, however patient ultimately decided to not undergo cardiac catheterization -no further troponins trended as patient declined intervention, chest pain resolved Weight Loss/Protein-Calorie Malnutrition: patient reports probably 50lbs weight loss over the past year with poor appetite -hemoccult negative -start on Ensure shakes tid -referral to outpatient GI for endoscopy (patient with complaints of frequent heartburn) -monitor CBC BPH: CT abd/pelvis with markedly enlarged prostate -patient with intermittent complaints of urinary retention -will start on flomax 0.4mg daily -outpatient f/up with urology Adrenal Nodule: incidentally found on abdominal CT -suspect adrenal adenoma -patient informed of results, recommend outpatient f/up DVT Prophylaxis: Eliquis Code Status: DNR Discharge Planning: Likely needs placement. Continue to treat for UTI with IV abx, failed outpatient. Possible discharge in 1-2 days.
[2018-05-28] MEDS ORDERED: Aluminum/Magnesium/Simethacone Susp 30 ML UDC PO PRN (15:33)
[2018-05-28] MEDS: Famotidine 20 MG Tablet PO SCH ×2 (16:10→21:13)
[2018-05-28] MEDS ORDERED: Haloperidol Inj 5 MG/ML Ampul IV.PUSH PRN (16:30)
[2018-05-28] MEDS ORDERED: LORazepam 1 MG Tablet PO PRN (16:30)
[2018-05-28] MEDS: Folic Acid 1 MG Tablet PO SCH (17:19)
[2018-05-28] MEDS: Multivitamin/Minerals Therapeutic Tablet PO SCH (17:19)
[2018-05-28] MEDS ORDERED: [UNRECOGNIZED DRUG - OTHER] IM ONE (21:28)
[2018-05-29] MEDS: Famotidine 20 MG Tablet PO SCH ×2 (09:24→22:19)
[2018-05-29] MEDS: Folic Acid 1 MG Tablet PO SCH (09:24)
[2018-05-29] MEDS: Multivitamin/Minerals Therapeutic Tablet PO SCH (09:24)
[2018-05-29] MEDS: Metoprolol Tartrate 25 MG Tablet PO SCH ×2 (09:25→22:18)
[2018-05-29] MEDS: Lisinopril 5 MG Tablet PO SCH ×2 (09:26→22:19)
--- NOTE | 2018-05-29 10:02 | P.PNIM ---
Subjective Interval history: Follow-up for UTI, and new diagnosis of A. fib/CHF. Seen and examined laying in bed, denies any chest pain or shortness of breath or palpitation. Patient states that he had chest pain in the beginning on admission however it was relieved. Patient denies any shortness of breath, not even on exertion. Patient complained about pain in urination, patient stated he had blood in his urine a week ago when he had the first symptom. But then it resolves in a day. However he continued to have pain in urination. Patient denies any history of bladder cancer, prostate cancer. Patient states that he was seen in [place] and did not have any workup before. Patient reported that he had a Damon catheter placed 6 years ago for unable to void for about few months. Patient denies any nausea or vomiting. Denies any abdominal pain. Denies any diarrhea or constipation. Denies any fever or chills. Physical Exam Vital signs: Vital Signs 05/28/18 12:00 05/28/18 13:05 05/28/18 16:00 Temperature 97.3 F L 97.6 F 97.1 F L Pulse Rate 74 72 88 Respiratory Rate 18 17 20 Blood Pressure 90/53 L 104/63 153/81 H Pulse Oximetry 92 L 97 99 05/28/18 20:00 05/29/18 00:00 05/29/18 04:00 Temperature 97.5 F L 97.8 F 97.5 F L Pulse Rate 86 76 70 Respiratory Rate 17 17 18 Blood Pressure 144/71 H 127/69 128/73 Pulse Oximetry 98 96 96 Intake & Output 05/28/18 05/29/18 05/29/18 18:59 06:59 18:59 Intake Total 100 / 100 600 / 600 Output Total 400 / 400 200 / 200 Balance -300 / -300 400 / 400 Weight 64.3 kg 64.1 kg Intake: IV 100 / 100 Rocephin Inj 1,000 MG In NS Inj 100 / 100 100 ML @ 200 mls/hr IV.SIG Q24H [facility] Rx#:[id number] Oral 600 / 600 Output: Urine 400 / 400 200 / 200 Other: Date of Last Bowel Movement 05/27/18 05/27/18 # Bowel Movements 0 Narrative: GENERAL: Well-developed, thin elderly male, alert and oriented x3, in no apparent distress SKIN: Warm and dry. HEAD: Atraumatic. Normocephalic. EYES: Pupils equal and round. No scleral icterus. No injection or drainage. ENT: No nasal bleeding or discharge. Mucous membranes pink and moist. NECK: Trachea midline. No JVD. CARDIOVASCULAR: IRRegular rate and rhythm. Positive murmur /6 RESPIRATORY: No accessory muscle use. Clear to auscultation. Breath sounds equal bilaterally. GASTROINTESTINAL: Abdomen flat soft, non-tender, nondistended. Hepatic and splenic margins not palpable. MUSCULOSKELETAL: Extremities without clubbing, cyanosis, or edema. No obvious deformities. NEUROLOGICAL: Awake and alert. No obvious cranial nerve deficits. Motor grossly within normal limits. Generalized weakness, moving all extremities. Normal speech. PSYCHIATRIC: Appropriate mood and affect; insight and judgment normal. Results - Labs CBC & Chem 7: 05/27/18 07:15 05/27/18 07:15 Assessment and Plan - Assessment (1) Acute UTI Code(s): N39.0 - Urinary tract infection, site not specified Status: Acute (2) Weakness Code(s): R53.1 - Weakness Status: Acute (3) Cardiomyopathy Code(s): I42.9 - Cardiomyopathy, unspecified Status: Acute (4) Atrial fibrillation Code(s): I48.91 - Unspecified atrial fibrillation Status: Acute - Plan 87-year-old male with history of hypertension, recent UTI on antibiotic x1 week , presents with generalized weakness and dysuria. In the ER, was found to have UTI and new onset A. fib. UTI/Cystitis failed outpatient: Recently on antibiotics x1 week after visit to [facility]. -Urinalysis with leuks and WBCs -Continue on IV Rocephin -Urine culture with mixed jessica however unreliable as patient has been on antibiotics x1 week -Patient still symptoms, will give trial of pyridium New onset atrial fibrillation With intermittent episodes of RVR, heart rate up to 118. -Started on metoprolol 12.5 mg bid, caution with borderline hypertension -Monitor on telemetry -Chads 2 Vasc score of at least 4, started on Eliquis, discussed risks -Cardiology consulted, appreciate assistance New onset ischemic CHF/cardiomyopathy Suspect most likely ischemic with NSTEMI, however patient declining Lexiscan/ Cath -Echocardiogram with severely reduced systolic function, EF 25-30% -Cardiology consulted, discussed with Dr. Johnson, appreciate assistance -continue on lisinopril, metoprolol -No significant signs of fluid overload at this time NSTEMI troponins increased from 0.03 to 0.07. Patient with complaints of chest pain upon admission. -continue aspirin -cardiology consulted, however patient ultimately decided to not undergo cardiac catheterization -no further troponins trended as patient declined intervention, chest pain resolved Generalized weakness Likely multifactorial with advanced age, deconditioning, UTI, and new onset A. fib/CHF. -Treat infection, see below -Consult PT, patient will likely benefit from rehab placement, patient agrees -Patient wishes to be DNR (after discussion with myself and Dr. Johnson) Weight Loss/Protein Calorie Malnutrition patient reports probably 50lbs weight loss over the past year with poor appetite -hemoccult negative -continue on Ensure shakes tid -referral to outpatient GI for endoscopy (patient with complaints of frequent heartburn) -monitor CBC BPH CT abd/pelvis with markedly enlarged prostate -patient with intermittent complaints of urinary retention -continue on flomax 0.4mg daily -outpatient f/up with urology Adrenal Nodule Incidentally found on abdominal CT -suspect adrenal adenoma -patient informed of results, recommend outpatient f/up DVT Prophylaxis: Eliquis Code Status: DNR Discussed Condition With: Patient and nurse
[2018-05-30] MEDS: Lisinopril 5 MG Tablet PO SCH ×2 (09:02→21:19)
[2018-05-30] MEDS: Famotidine 20 MG Tablet PO SCH ×2 (09:02→21:19)
[2018-05-30] MEDS: Multivitamin/Minerals Therapeutic Tablet PO SCH (09:02)
[2018-05-30] MEDS: Folic Acid 1 MG Tablet PO SCH (09:03)
[2018-05-30] MEDS: Metoprolol Tartrate 25 MG Tablet PO SCH ×2 (09:03→21:19)
--- NOTE | 2018-05-30 11:54 | P.PNIM ---
Subjective Interval history: Follow-up for UTI, and new diagnosis of A. fib/CHF. Patient seen and examined laying in bed, denies any palpitation, chest pain or shortness of breath, stated feeling better. Patient stated his only complaint is the pain and burning in urination. Patient stated he had some kidney stones in the past. Patient denies any headache or dizziness, denies any nausea or vomiting, denies any diarrhea or constipation. Patient denies any fever or chills. Discussed discharge planning and plan for placement in the nursing facility, patient agreed with the plan. Physical Exam Vital signs: Vital Signs 05/29/18 12:00 05/29/18 16:00 05/29/18 20:00 Temperature 97.6 F 98.3 F 97.8 F Pulse Rate 72 72 102 H Respiratory Rate 18 18 20 Blood Pressure 126/77 114/59 L 116/68 Pulse Oximetry 97 98 97 05/30/18 00:00 05/30/18 04:00 05/30/18 08:00 Temperature 98.1 F 97.5 F L 98.5 F Pulse Rate 75 82 82 Respiratory Rate 20 18 20 Blood Pressure 146/87 H 111/55 L 154/76 H Pulse Oximetry 95 94 L 96 Intake & Output 05/29/18 05/30/18 05/30/18 18:59 06:59 18:59 Intake Total 580 / 580 600 / 600 Output Total 800 / 800 950 / 950 Balance -220 / -220 -350 / -350 Weight 64.1 kg Intake: IV 100 / 100 Rocephin Inj 1,000 MG In NS Inj 100 / 100 100 ML @ 200 mls/hr IV.SIG Q24H [facility] Rx#:[id number] Oral 480 / 480 600 / 600 Output: Urine 800 / 800 950 / 950 Results - Labs CBC & Chem 7: 05/27/18 07:15 05/27/18 07:15 Assessment and Plan - Assessment (1) Acute UTI Code(s): N39.0 - Urinary tract infection, site not specified Status: Acute (2) Weakness Code(s): R53.1 - Weakness Status: Acute (3) Cardiomyopathy Code(s): I42.9 - Cardiomyopathy, unspecified Status: Acute (4) Atrial fibrillation Code(s): I48.91 - Unspecified atrial fibrillation Status: Acute - Plan 87-year-old male with history of hypertension, recent UTI on antibiotic x1 week , presents with generalized weakness and dysuria. In the ER, was found to have UTI and new onset A. fib. UTI/Cystitis failed outpatient: Recently on antibiotics x1 week after visit to [facility]. -Urinalysis with leuks and WBCs -Urine culture with mixed jessica however unreliable as patient has been on antibiotics x1 week -Patient still with symptoms/dysuria, continue pyridium -Continue on IV Rocephin New onset atrial fibrillation With intermittent episodes of RVR, heart rate up to 118 on admission. HR bet 55 -102 -Started on metoprolol 12.5 mg bid, caution with borderline hypertension -Monitor on telemetry -Chads 2 Vasc score of at least 4, started on Eliquis, discussed risks -Cardiology consulted, appreciate assistance New onset ischemic CHF/cardiomyopathy/NSTEMI Suspect most likely ischemic with NSTEMI, however patient declining Lexiscan/ Cath -Echocardiogram with severely reduced systolic function, EF 25-30% -Cardiology consulted, discussed with Dr. Johnson, patient ultimately decided to not undergo cardiac catheterization -continue on lisinopril, metoprolol -No significant signs of fluid overload at this time -troponin increased from 0.03 to 0.07. Patient with complaints of chest pain upon admission, no further troponins trended as patient declined intervention, chest pain resolved -continue aspirin Generalized weakness Likely multifactorial with advanced age, deconditioning, UTI, and new onset A. fib/CHF. -Treat infection -Consult PT, patient will likely benefit from rehab placement, patient agrees -Patient wishes to be DNR (after discussion with myself and Dr. Johnson) Weight Loss/Protein Calorie Malnutrition patient reports probably 50lbs weight loss over the past year with poor appetite -hemoccult negative -continue on Ensure shakes tid -referral to outpatient GI for endoscopy (patient with complaints of frequent heartburn) -monitor CBC BPH CT abd/pelvis with markedly enlarged prostate -patient with intermittent complaints of urinary retention -continue on flomax 0.4mg daily -outpatient f/up with urology Adrenal Nodule Incidentally found on abdominal CT -suspect adrenal adenoma -patient informed of results, recommend outpatient f/up DVT Prophylaxis: Eliquis Code Status: dnr Discussed Condition With: patient and nurse
[2018-05-31] MEDS: Lisinopril 5 MG Tablet PO SCH ×2 (08:24→21:08)
[2018-05-31] MEDS: Metoprolol Tartrate 25 MG Tablet PO SCH ×2 (08:25→21:09)
[2018-05-31] MEDS: Famotidine 20 MG Tablet PO SCH ×2 (08:25→21:08)
[2018-05-31] MEDS: Multivitamin/Minerals Therapeutic Tablet PO SCH (08:25)
[2018-05-31] MEDS: Folic Acid 1 MG Tablet PO SCH (08:25)
--- NOTE | 2018-05-31 13:25 | P.PNIM ---
Subjective Interval history: This patient is an 87-year-old male with a diagnosis of hypertension. As per the patient he only takes blood pressure medications however is on sure about which medications he takes. He presents to our emergency department today with complaints of dysuria that have been ongoing for a week. Initially the patient went to [facility] and was evaluated and diagnosed with a urinary tract infection. He was given antibiotics however is on sure about which medication he took. His symptoms continued and he now comes back into the emergency department for evaluation of dysuria. He denies having any fevers or chills. He admits to urinary frequency however has not had any difficulty with urinary stream or initiating. He denies having any history of atrial fibrillation. On my evaluation the patient is denying any chest pain, no abdominal pain, no shortness of breath. He is unsure if he has noticed any blood in his urine as the patient states he has very poor vision. He has no history of prior bleeding in the past. He also states that he has been feeling weak over the past week and has been having difficulty with ambulation because he feels weak. Past medical history hypertension Family history no significant past medical history that runs in the family as per the patient. Social history the patient admits to an extensive tobacco smoking history. Last cigarette was 3 weeks ago. Surgical history right hip replacement approximately 10 years ago 10-4 Follow-up for UTI, and new diagnosis of A. fib/CHF. Patient reports feeling only slightly better today. Reports continued dysuria with some urinary retention. He denies fevers or chills. He complains of continued generalized weakness and fatigue. He had episodes of epigastric heartburn overnight, relieved after receiving Tums. Denies any headache, lightheadedness, dizziness, chest pain, shortness of breath, abdominal pain, nausea/vomiting, or diarrhea. He does report recent weight loss of probably over 50lbs this year. He states he hardly has an appetite. He is unable to tell the color of his stool because of his poor vision. He believes he had a colonoscopy many years ago, at least 10-20years, does not recall any abnormal results. Discussed the patient's new diagnosis of afib and CHF. The patient agrees to medical management, however does not want any further ischemic work up. After long discussion, the patient requests to be DNR. 10-5 Follow-up for UTI, failed outpatient, new A. fib/CHF/and STEMI. Patient reports feeling slightly better today, however still very weak and fatigued. He reports continued dysuria and incomplete voiding. He states many years ago he was told he has an enlarged prostate, required Damon catheter for short period of time, but absolutely wants to avoid this if possible. He states he still urinating just more frequently. He denies any fevers or chills. He denies any chest pain today, although did have some substernal burning chest pain yesterday. Denies any shortness of breath, diaphoresis, or nausea/ vomiting. He has no other medical complaints at this time. 10-6 Follow-up for UTI, and new diagnosis of A. fib/CHF. Seen and examined laying in bed, denies any chest pain or shortness of breath or palpitation. Patient states that he had chest pain in the beginning on admission however it was relieved. Patient denies any shortness of breath, not even on exertion. Patient complained about pain in urination, patient stated he had blood in his urine a week ago when he had the first symptom. But then it resolves in a day. However he continued to have pain in urination. Patient denies any history of bladder cancer, prostate cancer. Patient states that he was seen in [place] and did not have any workup before. Patient reported that he had a Damon catheter placed 6 years ago for unable to void for about few months. Patient denies any nausea or vomiting. Denies any abdominal pain. Denies any diarrhea or constipation. Denies any fever or chills. 10-7 Follow-up for UTI, and new diagnosis of A. fib/CHF. Patient seen and examined laying in bed, denies any palpitation, chest pain or shortness of breath, stated feeling better. Patient stated his only complaint is the pain and burning in urination. Patient stated he had some kidney stones in the past. Patient denies any headache or dizziness, denies any nausea or vomiting, denies any diarrhea or constipation. Patient denies any fever or chills. Discussed discharge planning and plan for placement in the nursing facility, patient agreed with the plan. 10-8 PATIENT IS ON ELIQUIS FOR AFIB LIVES ALONE NEEDS SNF CONTINUE TREATING UTI DW RN AND CM AND PT AM LABS Physical Exam Vital signs: Vital Signs 05/30/18 16:00 05/30/18 20:00 05/31/18 00:00 Temperature 97.2 F L 97.5 F L 97.6 F Pulse Rate 73 74 72 Respiratory Rate 18 Blood Pressure 110/74 121/77 131/66 Pulse Oximetry 96 95 95 05/31/18 04:00 05/31/18 08:00 05/31/18 12:00 Temperature 97.6 F 97.5 F L 97.2 F L Pulse Rate 66 68 62 Respiratory Rate Blood Pressure 147/74 H 151/88 H 124/77 Pulse Oximetry 95 96 95 Intake & Output 05/30/18 05/31/18 05/31/18 18:59 06:59 18:59 Intake Total 580 / 580 100 / 100 Output Total 800 / 800 800 / 800 Balance -220 / -220 -800 / -800 100 / 100 Weight 64.6 kg Intake: IV 100 / 100 100 / 100 Rocephin Inj 1,000 MG In NS Inj 100 / 100 100 / 100 100 ML @ 200 mls/hr IV.SIG Q24H [facility] Rx#:[id number] Oral 480 / 480 Output: Urine 800 / 800 800 / 800 Other: # Voids 2 # Bowel Movements 1 Narrative: GENERAL: Well-developed, thin elderly male, alert and oriented x3, in no apparent distress SKIN: Warm and dry. HEAD: Atraumatic. Normocephalic. EYES: Pupils equal and round. No scleral icterus. No injection or drainage. ENT: No nasal bleeding or discharge. Mucous membranes pink and moist. NECK: Trachea midline. No JVD. CARDIOVASCULAR: IRRegular rate and rhythm. Positive murmur 1/6 RESPIRATORY: No accessory muscle use. Clear to auscultation. Breath sounds equal bilaterally. GASTROINTESTINAL: Abdomen flat soft, non-tender, nondistended. Hepatic and splenic margins not palpable. MUSCULOSKELETAL: Extremities without clubbing, cyanosis, or edema. No obvious deformities. NEUROLOGICAL: Awake and alert. No obvious cranial nerve deficits. Motor grossly within normal limits. Generalized weakness, moving all extremities. Normal speech. PSYCHIATRIC: Appropriate mood and affect; insight and judgment normal. Results - Labs CBC & Chem 7: 05/27/18 07:15 05/27/18 07:15 Laboratory Results - last 24 hr 05/30/18 11:15 Troponin I 0.70 H* - Imaging ITS Impressions Abdomen/Pelvis CT 05/26/18 12:11 CONCLUSION: 1. Markedly enlarged prostate. 2. 2 cm calcified urinary bladder stone. 3. Uncomplicated colonic diverticulosis. 4. 18 mm left adrenal nodule consistent with probable adrenal adenoma. 5. Cardiomegaly and coronary artery calcifications. 6. Degenerative changes, scoliosis and multilevel spinal stenoses within lumbar spine. 7. Small left inguinal hernia containing only fat. 8. Posterior bibasilar atelectatic changes. 9. Tiny bilateral pleural effusions. Chest X-Ray 05/26/18 12:11 CONCLUSION: 1. Cardiomegaly. 2. Bilateral rotator cuff pathology and significant degenerative changes involving the shoulders. 3. No focal infiltrate or pulmonary vascular congestion. 4. Degenerative changes throughout the thoracic spine. - Procedures NONE Assessment and Plan - Assessment (1) Acute UTI Code(s): N39.0 - Urinary tract infection, site not specified Status: Acute (2) Weakness Code(s): R53.1 - Weakness Status: Acute (3) Cardiomyopathy Code(s): I42.9 - Cardiomyopathy, unspecified Status: Acute (4) Atrial fibrillation Code(s): I48.91 - Unspecified atrial fibrillation Status: Acute - Plan 87-year-old male with history of hypertension, recent UTI on antibiotic x1 week , presents with generalized weakness and dysuria. In the ER, was found to have UTI and new onset A. fib. UTI/Cystitis failed outpatient: Recently on antibiotics x1 week after visit to [facility]. -Urinalysis with leuks and WBCs -Urine culture with mixed jessica however unreliable as patient has been on antibiotics x1 week -Patient still with symptoms/dysuria, continue pyridium -Continue on IV Rocephin New onset atrial fibrillation With intermittent episodes of RVR, heart rate up to 118 on admission. HR bet 55 -102 -Started on metoprolol 12.5 mg bid, caution with borderline hypertension -Monitor on telemetry -Chads 2 Vasc score of at least 4, started on Eliquis, discussed risks -Cardiology consulted, appreciate assistance New onset ischemic CHF/cardiomyopathy/NSTEMI Suspect most likely ischemic with NSTEMI, however patient declining Lexiscan/ Cath -Echocardiogram with severely reduced systolic function, EF 25-30% -Cardiology consulted, discussed with Dr. Johnson, patient ultimately decided to not undergo cardiac catheterization -continue on lisinopril, metoprolol -No significant signs of fluid overload at this time -troponin increased from 0.03 to 0.07. Patient with complaints of chest pain upon admission, no further troponins trended as patient declined intervention, chest pain resolved -continue aspirin Generalized weakness Likely multifactorial with advanced age, deconditioning, UTI, and new onset A. fib/CHF. -Treat infection -Consult PT, patient will likely benefit from rehab placement, patient agrees -Patient wishes to be DNR (after discussion with myself and Dr. Johnson) Weight Loss/Protein Calorie Malnutrition patient reports probably 50lbs weight loss over the past year with poor appetite -hemoccult negative -continue on Ensure shakes tid -referral to outpatient GI for endoscopy (patient with complaints of frequent heartburn) -monitor CBC BPH CT abd/pelvis with markedly enlarged prostate -patient with intermittent complaints of urinary retention -continue on flomax 0.4mg daily -outpatient f/up with urology Adrenal Nodule Incidentally found on abdominal CT -suspect adrenal adenoma -patient informed of results, recommend outpatient f/up DVT Prophylaxis: Dianna Code Status: DNR Discussed Condition With: RN AND CM AND PT Discharge Planning: NEEDS SNF APPROVAL
[2018-06-01 07:42] LABS: Baso # (Auto) 0.1 th/mm3 (0.0-0.2); Eos # (Auto) 0.1 th/mm3 (0.0-0.4); Eos % (Auto) 1.3 % (0.0-4.0); Hematocrit 38.2 % (39.0-51.0); Hemoglobin 12.8 gm/dL (13.0-17.0); Lymph # (Auto) 1.4 th/mm3 (1.0-4.8); Mean Corpuscular HGB Conc 33.5 % (32.0-36.0); Mean Corpuscular Volume 95.4 fL (80.0-100.0); Mean Platelet Volume 9.3 fL (7.0-11.0); Mono # (Auto) 0.8 th/mm3 (0.0-0.9); Mono % (Auto) 13.4 % (0.0-8.0); Neut # (Auto) 3.6 th/mm3 (1.8-7.7); Neut % (Auto) 60.3 % (16.0-70.0); Platelet Count 336 th/mm3 (150-450); Red Blood Count 4.01 mil/mm3 (4.50-5.90); Red Cell Distribution Width 14.2 % (11.6-17.2)
[2018-06-01 07:51] LABS: INR 1.1 Ratio; Prothrombin Time 11.6 sec (9.8-11.6)
[2018-06-01 08:10] LABS: Albumin 2.3 g/dL (3.4-5.0); Anion Gap 7 meq/L (5-15); Blood Urea Nitrogen 23 mg/dL (7-18); Calcium 8.7 mg/dL (8.5-10.1); Carbon Dioxide 28.7 meq/L (21.0-32.0); Chloride 100 meq/L (98-107); Glomerular Filtration Rate Greater Than 89 mL/min (>89); Glucose,Random 87 mg/dL (74-106); Magnesium 1.6 mg/dL (1.5-2.5); Potassium 3.8 meq/L (3.5-5.1); Sodium 136 meq/L (136-145)
[2018-06-01 08:12] LABS: Aspartate Aminotransferase 63 U/L (15-37); Cholesterol 125 mg/dL (120-200); Triglycerides 75 mg/dL (42-150)
[2018-06-01 08:21] LABS: Alanine Aminotransferase 83 U/L (12-78); Alkaline Phosphatase 199 U/L (45-117); Chol/HDL Ratio 3.36 Ratio; Free T4 (Free Thyroxine) 0.97 ng/dL (0.76-1.46); HDL Cholesterol 37.2 mg/dL (40.0-60.0); LDL Cholesterol,Calculated 73 mg/dL (0-99); Troponin I 0.59 ng/mL (0.02-0.05)
[2018-06-01] MEDS: Folic Acid 1 MG Tablet PO SCH (09:13)
[2018-06-01] MEDS: Multivitamin/Minerals Therapeutic Tablet PO SCH (09:13)
[2018-06-01] MEDS: Metoprolol Tartrate 25 MG Tablet PO SCH ×2 (09:13→21:21)
[2018-06-01] MEDS: Famotidine 20 MG Tablet PO SCH ×2 (09:13→21:21)
[2018-06-01] MEDS: Lisinopril 5 MG Tablet PO SCH ×2 (09:13→21:22)
--- NOTE | 2018-06-01 12:08 | P.PNIM ---
Subjective Interval history: This patient is an 87-year-old male with a diagnosis of hypertension. As per the patient he only takes blood pressure medications however is on sure about which medications he takes. He presents to our emergency department today with complaints of dysuria that have been ongoing for a week. Initially the patient went to [facility] and was evaluated and diagnosed with a urinary tract infection. He was given antibiotics however is on sure about which medication he took. His symptoms continued and he now comes back into the emergency department for evaluation of dysuria. He denies having any fevers or chills. He admits to urinary frequency however has not had any difficulty with urinary stream or initiating. He denies having any history of atrial fibrillation. On my evaluation the patient is denying any chest pain, no abdominal pain, no shortness of breath. He is unsure if he has noticed any blood in his urine as the patient states he has very poor vision. He has no history of prior bleeding in the past. He also states that he has been feeling weak over the past week and has been having difficulty with ambulation because he feels weak. Past medical history hypertension Family history no significant past medical history that runs in the family as per the patient. Social history the patient admits to an extensive tobacco smoking history. Last cigarette was 3 weeks ago. Surgical history right hip replacement approximately 10 years ago 10-4 Follow-up for UTI, and new diagnosis of A. fib/CHF. Patient reports feeling only slightly better today. Reports continued dysuria with some urinary retention. He denies fevers or chills. He complains of continued generalized weakness and fatigue. He had episodes of epigastric heartburn overnight, relieved after receiving Tums. Denies any headache, lightheadedness, dizziness, chest pain, shortness of breath, abdominal pain, nausea/vomiting, or diarrhea. He does report recent weight loss of probably over 50lbs this year. He states he hardly has an appetite. He is unable to tell the color of his stool because of his poor vision. He believes he had a colonoscopy many years ago, at least 10-20years, does not recall any abnormal results. Discussed the patient's new diagnosis of afib and CHF. The patient agrees to medical management, however does not want any further ischemic work up. After long discussion, the patient requests to be DNR. 10-5 Follow-up for UTI, failed outpatient, new A. fib/CHF/and STEMI. Patient reports feeling slightly better today, however still very weak and fatigued. He reports continued dysuria and incomplete voiding. He states many years ago he was told he has an enlarged prostate, required Damon catheter for short period of time, but absolutely wants to avoid this if possible. He states he still urinating just more frequently. He denies any fevers or chills. He denies any chest pain today, although did have some substernal burning chest pain yesterday. Denies any shortness of breath, diaphoresis, or nausea/ vomiting. He has no other medical complaints at this time. 10-6 Follow-up for UTI, and new diagnosis of A. fib/CHF. Seen and examined laying in bed, denies any chest pain or shortness of breath or palpitation. Patient states that he had chest pain in the beginning on admission however it was relieved. Patient denies any shortness of breath, not even on exertion. Patient complained about pain in urination, patient stated he had blood in his urine a week ago when he had the first symptom. But then it resolves in a day. However he continued to have pain in urination. Patient denies any history of bladder cancer, prostate cancer. Patient states that he was seen in [place] and did not have any workup before. Patient reported that he had a Damon catheter placed 6 years ago for unable to void for about few months. Patient denies any nausea or vomiting. Denies any abdominal pain. Denies any diarrhea or constipation. Denies any fever or chills. 10-7 Follow-up for UTI, and new diagnosis of A. fib/CHF. Patient seen and examined laying in bed, denies any palpitation, chest pain or shortness of breath, stated feeling better. Patient stated his only complaint is the pain and burning in urination. Patient stated he had some kidney stones in the past. Patient denies any headache or dizziness, denies any nausea or vomiting, denies any diarrhea or constipation. Patient denies any fever or chills. Discussed discharge planning and plan for placement in the nursing facility, patient agreed with the plan. 10-8 PATIENT IS ON ELIQUIS FOR AFIB LIVES ALONE NEEDS SNF CONTINUE TREATING UTI DW RN AND CM AND PT AM LABS DW DAUGHTER LISA [phone] IN [place] SHE AGREES WITH SNF MAY NEED [facility] VS SNF SINCE HE LIVES ALONE 06-01 WORKING WITH PT AND OT LIVES ALONE NO OTHER FAMILY MEMBERS HERE HAS BLINDNESS AND HAS HAD ISSUES LIVING ALONE MAY NEED HHC SINCE NOT SURE IF INSURANCE WILL COVER SNF Physical Exam Vital signs: Vital Signs 05/31/18 16:00 05/31/18 20:00 05/31/18 23:45 Temperature 97.3 F L 97.3 F L Pulse Rate 66 74 82 Respiratory Rate 18 18 Blood Pressure 119/75 142/91 H Pulse Oximetry 96 97 06/01/18 00:00 06/01/18 03:45 06/01/18 04:00 Temperature 97.4 F L 97.6 F Pulse Rate 65 62 51 L Respiratory Rate 18 18 Blood Pressure 149/91 H 169/97 H Pulse Oximetry 97 93 L 06/01/18 08:00 06/01/18 08:45 Temperature 97.5 F L Pulse Rate 69 Respiratory Rate 19 Blood Pressure 172/82 H Pulse Oximetry 96 96 Intake & Output 05/31/18 06/01/18 06/01/18 18:59 06:59 18:59 Intake Total 100 / 100 120 / 120 Output Total 400 / 400 Balance 100 / 100 -280 / -280 Intake: IV 100 / 100 Rocephin Inj 1,000 MG In NS Inj 100 / 100 100 ML @ 200 mls/hr IV.SIG Q24H TAY Rx#:[id number] Oral 120 / 120 Output: Urine 400 / 400 Other: # Voids 3 Date of Last Bowel Movement 05/31/18 # Bowel Movements 1 Narrative: GENERAL: Well-developed, thin elderly male, alert and oriented x3, in no apparent distress SKIN: Warm and dry. HEAD: Atraumatic. Normocephalic. EYES: Pupils equal and round. No scleral icterus. No injection or drainage. ENT: No nasal bleeding or discharge. Mucous membranes pink and moist. NECK: Trachea midline. No JVD. CARDIOVASCULAR: IRRegular rate and rhythm. Positive murmur 1/6 RESPIRATORY: No accessory muscle use. Clear to auscultation. Breath sounds equal bilaterally. GASTROINTESTINAL: Abdomen flat soft, non-tender, nondistended. Hepatic and splenic margins not palpable. MUSCULOSKELETAL: Extremities without clubbing, cyanosis, or edema. No obvious deformities. NEUROLOGICAL: Awake and alert. No obvious cranial nerve deficits. Motor grossly within normal limits. Generalized weakness, moving all extremities. Normal speech. PSYCHIATRIC: Appropriate mood and affect; insight and judgment normal. Results - Labs CBC & Chem 7: 06/01/18 07:00 06/01/18 07:00 Laboratory Results - last 24 hr 06/01/18 06/01/18 06/01/18 07:00 07:00 07:00 WBC 6.0 RBC 4.01 L Hgb 12.8 L Hct 38.2 L MCV 95.4 MCH 32.0 MCHC 33.5 RDW 14.2 Plt Count 336 D MPV 9.3 Neut % (Auto) 60.3 Lymph % (Auto) 24.0 Woodward % (Auto) 13.4 H Eos % (Auto) 1.3 Baso % (Auto) 1.0 Neut # (Auto) 3.6 Lymph # (Auto) 1.4 Woodward # (Auto) 0.8 Eos # (Auto) 0.1 Baso # (Auto) 0.1 WBC Differential . Differential Comment Auto diff final PT 11.6 INR 1.1 Sodium 136 Potassium 3.8 Chloride 100 Carbon Dioxide 28.7 Anion Gap 7 BUN 23 H Creatinine 0.63 Estimated GFR Greater than 89 Random Glucose 87 Calcium 8.7 Magnesium 1.6 Total Bilirubin 0.4 AST 63 H ALT 83 H Alkaline Phosphatase 199 H Troponin I 0.59 H Total Protein 6.0 L D Albumin 2.3 L Triglycerides 75 Cholesterol 125 LDL Cholesterol, Calc 73 HDL Cholesterol 37.2 L Cholesterol/HDL Ratio 3.36 TSH 3.660 Free T4 0.97 - Imaging ITS Impressions Abdomen/Pelvis CT 05/26/18 12:11 CONCLUSION: 1. Markedly enlarged prostate. 2. 2 cm calcified urinary bladder stone. 3. Uncomplicated colonic diverticulosis. 4. 18 mm left adrenal nodule consistent with probable adrenal adenoma. 5. Cardiomegaly and coronary artery calcifications. 6. Degenerative changes, scoliosis and multilevel spinal stenoses within lumbar spine. 7. Small left inguinal hernia containing only fat. 8. Posterior bibasilar atelectatic changes. 9. Tiny bilateral pleural effusions. Chest X-Ray 05/26/18 12:11 CONCLUSION: 1. Cardiomegaly. 2. Bilateral rotator cuff pathology and significant degenerative changes involving the shoulders. 3. No focal infiltrate or pulmonary vascular congestion. 4. Degenerative changes throughout the thoracic spine. - Procedures NONE Assessment and Plan - Assessment (1) Acute UTI Code(s): N39.0 - Urinary tract infection, site not specified Status: Acute (2) Weakness Code(s): R53.1 - Weakness Status: Acute (3) Cardiomyopathy Code(s): I42.9 - Cardiomyopathy, unspecified Status: Acute (4) Atrial fibrillation Code(s): I48.91 - Unspecified atrial fibrillation Status: Acute - Plan 87-year-old male with history of hypertension, recent UTI on antibiotic x1 week , presents with generalized weakness and dysuria. In the ER, was found to have UTI and new onset A. fib. UTI/Cystitis failed outpatient: Recently on antibiotics x1 week after visit to [facility]. -Urinalysis with leuks and WBCs -Urine culture with mixed jessica however unreliable as patient has been on antibiotics x1 week -Patient still with symptoms/dysuria, continue pyridium -Continue on IV Rocephin New onset atrial fibrillation With intermittent episodes of RVR, heart rate up to 118 on admission. HR bet 55 -102 -Started on metoprolol 12.5 mg bid, caution with borderline hypertension -Monitor on telemetry -Chads 2 Vasc score of at least 4, started on Eliquis, discussed risks -Cardiology consulted, appreciate assistance New onset ischemic CHF/cardiomyopathy/NSTEMI Suspect most likely ischemic with NSTEMI, however patient declining Lexiscan/ Cath -Echocardiogram with severely reduced systolic function, EF 25-30% -Cardiology consulted, discussed with Dr. Johnson, patient ultimately decided to not undergo cardiac catheterization -continue on lisinopril, metoprolol -No significant signs of fluid overload at this time -troponin increased from 0.03 to 0.07. Patient with complaints of chest pain upon admission, no further troponins trended as patient declined intervention, chest pain resolved -continue aspirin TRENDING DOWN FROM 0.7 TO 0.59 NOW Generalized weakness Likely multifactorial with advanced age, deconditioning, UTI, and new onset A. fib/CHF. -Treat infection -Consult PT, patient will likely benefit from rehab placement, patient agrees -Patient wishes to be DNR (after discussion with myself and Dr. Johnson) NEEDS PT AND OT MAY NEED [facility] VS SNF Weight Loss/Protein Calorie Malnutrition patient reports probably 50lbs weight loss over the past year with poor appetite -hemoccult negative -continue on Ensure shakes tid -referral to outpatient GI for endoscopy (patient with complaints of frequent heartburn) -monitor CBC BPH CT abd/pelvis with markedly enlarged prostate -patient with intermittent complaints of urinary retention -continue on flomax 0.4mg daily -outpatient f/up with urology Adrenal Nodule Incidentally found on abdominal CT -suspect adrenal adenoma -patient informed of results, recommend outpatient f/up DVT Prophylaxis: Eliquis Code Status: DNR Discussed Condition With: RN AND PT AND CM Discharge Planning: NEEDS SNF APPROVAL VS [facility]
[2018-06-01 17:34] LABS: Hemoglobin A1c 5.8 % (4.3-6.0)
[2018-06-02 09:43] VITALS: BP 150/71; RESP 18; TEMP 97.8; O2SAT 95
[2018-06-02] MEDS: Famotidine 20 MG Tablet PO SCH (09:52)
[2018-06-02] MEDS: Folic Acid 1 MG Tablet PO SCH (09:52)
[2018-06-02] MEDS: Metoprolol Tartrate 25 MG Tablet PO SCH (09:52)
[2018-06-02] MEDS: Multivitamin/Minerals Therapeutic Tablet PO SCH (09:52)
[2018-06-02] MEDS: Lisinopril 5 MG Tablet PO SCH (09:52)
--- NOTE | 2018-06-02 10:36 | P.PNIM ---
Subjective Interval history: This patient is an 87-year-old male with a diagnosis of hypertension. As per the patient he only takes blood pressure medications however is on sure about which medications he takes. He presents to our emergency department today with complaints of dysuria that have been ongoing for a week. Initially the patient went to [facility] and was evaluated and diagnosed with a urinary tract infection. He was given antibiotics however is on sure about which medication he took. His symptoms continued and he now comes back into the emergency department for evaluation of dysuria. He denies having any fevers or chills. He admits to urinary frequency however has not had any difficulty with urinary stream or initiating. He denies having any history of atrial fibrillation. On my evaluation the patient is denying any chest pain, no abdominal pain, no shortness of breath. He is unsure if he has noticed any blood in his urine as the patient states he has very poor vision. He has no history of prior bleeding in the past. He also states that he has been feeling weak over the past week and has been having difficulty with ambulation because he feels weak. Past medical history hypertension Family history no significant past medical history that runs in the family as per the patient. Social history the patient admits to an extensive tobacco smoking history. Last cigarette was 3 weeks ago. Surgical history right hip replacement approximately 10 years ago 10-4 Follow-up for UTI, and new diagnosis of A. fib/CHF. Patient reports feeling only slightly better today. Reports continued dysuria with some urinary retention. He denies fevers or chills. He complains of continued generalized weakness and fatigue. He had episodes of epigastric heartburn overnight, relieved after receiving Tums. Denies any headache, lightheadedness, dizziness, chest pain, shortness of breath, abdominal pain, nausea/vomiting, or diarrhea. He does report recent weight loss of probably over 50lbs this year. He states he hardly has an appetite. He is unable to tell the color of his stool because of his poor vision. He believes he had a colonoscopy many years ago, at least 10-20years, does not recall any abnormal results. Discussed the patient's new diagnosis of afib and CHF. The patient agrees to medical management, however does not want any further ischemic work up. After long discussion, the patient requests to be DNR. 10-5 Follow-up for UTI, failed outpatient, new A. fib/CHF/and STEMI. Patient reports feeling slightly better today, however still very weak and fatigued. He reports continued dysuria and incomplete voiding. He states many years ago he was told he has an enlarged prostate, required Damon catheter for short period of time, but absolutely wants to avoid this if possible. He states he still urinating just more frequently. He denies any fevers or chills. He denies any chest pain today, although did have some substernal burning chest pain yesterday. Denies any shortness of breath, diaphoresis, or nausea/ vomiting. He has no other medical complaints at this time. 10-6 Follow-up for UTI, and new diagnosis of A. fib/CHF. Seen and examined laying in bed, denies any chest pain or shortness of breath or palpitation. Patient states that he had chest pain in the beginning on admission however it was relieved. Patient denies any shortness of breath, not even on exertion. Patient complained about pain in urination, patient stated he had blood in his urine a week ago when he had the first symptom. But then it resolves in a day. However he continued to have pain in urination. Patient denies any history of bladder cancer, prostate cancer. Patient states that he was seen in [place] and did not have any workup before. Patient reported that he had a Damon catheter placed 6 years ago for unable to void for about few months. Patient denies any nausea or vomiting. Denies any abdominal pain. Denies any diarrhea or constipation. Denies any fever or chills. 10-7 Follow-up for UTI, and new diagnosis of A. fib/CHF. Patient seen and examined laying in bed, denies any palpitation, chest pain or shortness of breath, stated feeling better. Patient stated his only complaint is the pain and burning in urination. Patient stated he had some kidney stones in the past. Patient denies any headache or dizziness, denies any nausea or vomiting, denies any diarrhea or constipation. Patient denies any fever or chills. Discussed discharge planning and plan for placement in the nursing facility, patient agreed with the plan. 10-8 PATIENT IS ON ELIQUIS FOR AFIB LIVES ALONE NEEDS SNF CONTINUE TREATING UTI DW RN AND CM AND PT AM LABS DW DAUGHTER LISA [phone] IN [place] SHE AGREES WITH SNF MAY NEED [facility] VS SNF SINCE HE LIVES ALONE 06-01 WORKING WITH PT AND OT LIVES ALONE NO OTHER FAMILY MEMBERS HERE HAS BLINDNESS AND HAS HAD ISSUES LIVING ALONE MAY NEED HHC SINCE NOT SURE IF INSURANCE WILL COVER SNF 06-02 HAS BEEN ACCEPTED AT SNF TO GO TO SNF TODAY 3008 DONE PAPERWORK DONE DW RN AND PT AND CM Physical Exam Vital signs: Vital Signs 06/01/18 12:00 06/01/18 16:00 06/01/18 16:09 Temperature 97.1 F L 97.7 F Pulse Rate 64 70 62 Respiratory Rate 19 18 Blood Pressure 92/61 L 130/65 Pulse Oximetry 96 97 06/01/18 19:00 06/01/18 20:00 06/02/18 00:00 Temperature 97.2 F L 97.4 F L 98 F Pulse Rate 73 67 63 Respiratory Rate 19 20 20 Blood Pressure 138/91 H 173/83 H 131/74 Pulse Oximetry 96 96 96 06/02/18 04:00 06/02/18 08:00 Temperature 97.4 F L 97.8 F Pulse Rate 73 60 Respiratory Rate 20 18 Blood Pressure 170/95 H 150/71 H Pulse Oximetry 92 L 95 Intake & Output 06/01/18 06/02/18 06/02/18 18:59 06:59 18:59 Intake Total 820 / 820 330 / 330 Output Total 900 / 900 Balance 820 / 820 -570 / -570 Intake: IV 100 / 100 Rocephin Inj 1,000 MG In NS Inj 100 / 100 100 ML @ 200 mls/hr IV.SIG Q24H TAY Rx#:[id number] Oral 720 / 720 330 / 330 Output: Urine 900 / 900 Other: # Voids 4 3 Date of Last Bowel Movement 05/31/18 06/01/18 # Bowel Movements 1 Narrative: GENERAL: Well-developed, thin elderly male, alert and oriented x3, in no apparent distress SKIN: Warm and dry. HEAD: Atraumatic. Normocephalic. EYES: Pupils equal and round. No scleral icterus. No injection or drainage. ENT: No nasal bleeding or discharge. Mucous membranes pink and moist. NECK: Trachea midline. No JVD. CARDIOVASCULAR: IRRegular rate and rhythm. Positive murmur 1/6 RESPIRATORY: No accessory muscle use. Clear to auscultation. Breath sounds equal bilaterally. GASTROINTESTINAL: Abdomen flat soft, non-tender, nondistended. Hepatic and splenic margins not palpable. MUSCULOSKELETAL: Extremities without clubbing, cyanosis, or edema. No obvious deformities. NEUROLOGICAL: Awake and alert. No obvious cranial nerve deficits. Motor grossly within normal limits. Generalized weakness, moving all extremities. Normal speech. PSYCHIATRIC: Appropriate mood and affect; insight and judgment normal. Results - Labs CBC & Chem 7: 06/01/18 07:00 06/01/18 07:00 Laboratory Results - last 24 hr 06/01/18 07:00 Hemoglobin A1c 5.8 - Imaging ITS Impressions Abdomen/Pelvis CT 05/26/18 12:11 CONCLUSION: 1. Markedly enlarged prostate. 2. 2 cm calcified urinary bladder stone. 3. Uncomplicated colonic diverticulosis. 4. 18 mm left adrenal nodule consistent with probable adrenal adenoma. 5. Cardiomegaly and coronary artery calcifications. 6. Degenerative changes, scoliosis and multilevel spinal stenoses within lumbar spine. 7. Small left inguinal hernia containing only fat. 8. Posterior bibasilar atelectatic changes. 9. Tiny bilateral pleural effusions. Chest X-Ray 05/26/18 12:11 CONCLUSION: 1. Cardiomegaly. 2. Bilateral rotator cuff pathology and significant degenerative changes involving the shoulders. 3. No focal infiltrate or pulmonary vascular congestion. 4. Degenerative changes throughout the thoracic spine. - Procedures NONE Assessment and Plan - Assessment (1) Acute UTI Code(s): N39.0 - Urinary tract infection, site not specified Status: Acute (2) Weakness Code(s): R53.1 - Weakness Status: Acute (3) Cardiomyopathy Code(s): I42.9 - Cardiomyopathy, unspecified Status: Acute (4) Atrial fibrillation Code(s): I48.91 - Unspecified atrial fibrillation Status: Acute - Plan 87-year-old male with history of hypertension, recent UTI on antibiotic x1 week , presents with generalized weakness and dysuria. In the ER, was found to have UTI and new onset A. fib. UTI/Cystitis failed outpatient: Recently on antibiotics x1 week after visit to [facility]. -Urinalysis with leuks and WBCs -Urine culture with mixed jessica however unreliable as patient has been on antibiotics x1 week -Patient still with symptoms/dysuria, continue pyridium -Continue on IV Rocephin New onset atrial fibrillation With intermittent episodes of RVR, heart rate up to 118 on admission. HR bet 55 -102 -Started on metoprolol 12.5 mg bid, caution with borderline hypertension -Monitor on telemetry -Chads 2 Vasc score of at least 4, started on Eliquis, discussed risks -Cardiology consulted, appreciate assistance New onset ischemic CHF/cardiomyopathy/NSTEMI Suspect most likely ischemic with NSTEMI, however patient declining Lexiscan/ Cath -Echocardiogram with severely reduced systolic function, EF 25-30% -Cardiology consulted, discussed with Dr. Johnson, patient ultimately decided to not undergo cardiac catheterization -continue on lisinopril, metoprolol -No significant signs of fluid overload at this time -troponin increased from 0.03 to 0.07. Patient with complaints of chest pain upon admission, no further troponins trended as patient declined intervention, chest pain resolved -continue aspirin TRENDING DOWN FROM 0.7 TO 0.59 NOW Generalized weakness Likely multifactorial with advanced age, deconditioning, UTI, and new onset A. fib/CHF. -Treat infection -Consult PT, patient will likely benefit from rehab placement, patient agrees -Patient wishes to be DNR (after discussion with myself and Dr. Johnson) NEEDS PT AND OT MAY NEED [facility] VS SNF Weight Loss/Protein Calorie Malnutrition patient reports probably 50lbs weight loss over the past year with poor appetite -hemoccult negative -continue on Ensure shakes tid -referral to outpatient GI for endoscopy (patient with complaints of frequent heartburn) -monitor CBC BPH CT abd/pelvis with markedly enlarged prostate -patient with intermittent complaints of urinary retention -continue on flomax 0.4mg daily -outpatient f/up with urology Adrenal Nodule Incidentally found on abdominal CT -suspect adrenal adenoma -patient informed of results, recommend outpatient f/up DVT Prophylaxis: Eliquis DC TO SNF TODAY HAS BEEN ACCEPTED Code Status: DNR Discussed Condition With: RN AND PT AND CM Discharge Planning: TO SNF TODAY HAS BEEN ACCEPTED
--- NOTE | 2018-06-02 10:48 | P.DS ---
Date of admission: 05/27/18 11:28 Primary care physician: No Primary Care Physician Attending physician on discharge: Eris Luz Anticipated date of discharge: 06/02/18 Brief History from admission: This patient is an 87-year-old male with a diagnosis of hypertension. As per the patient he only takes blood pressure medications however is on sure about which medications he takes. He presents to our emergency department today with complaints of dysuria that have been ongoing for a week. Initially the patient went to [facility] and was evaluated and diagnosed with a urinary tract infection. He was given antibiotics however is on sure about which medication he took. His symptoms continued and he now comes back into the emergency department for evaluation of dysuria. He denies having any fevers or chills. He admits to urinary frequency however has not had any difficulty with urinary stream or initiating. He denies having any history of atrial fibrillation. On my evaluation the patient is denying any chest pain, no abdominal pain, no shortness of breath. He is unsure if he has noticed any blood in his urine as the patient states he has very poor vision. He has no history of prior bleeding in the past. He also states that he has been feeling weak over the past week and has been having difficulty with ambulation because he feels weak. Past medical history hypertension Family history no significant past medical history that runs in the family as per the patient. Social history the patient admits to an extensive tobacco smoking history. Last cigarette was 3 weeks ago. Surgical history right hip replacement approximately 10 years ago Allergies no known drug allergies Patient update on day of discharge: This patient is an 87-year-old male with a diagnosis of hypertension. As per the patient he only takes blood pressure medications however is on sure about which medications he takes. He presents to our emergency department today with complaints of dysuria that have been ongoing for a week. Initially the patient went to [facility] and was evaluated and diagnosed with a urinary tract infection. He was given antibiotics however is on sure about which medication he took. His symptoms continued and he now comes back into the emergency department for evaluation of dysuria. He denies having any fevers or chills. He admits to urinary frequency however has not had any difficulty with urinary stream or initiating. He denies having any history of atrial fibrillation. On my evaluation the patient is denying any chest pain, no abdominal pain, no shortness of breath. He is unsure if he has noticed any blood in his urine as the patient states he has very poor vision. He has no history of prior bleeding in the past. He also states that he has been feeling weak over the past week and has been having difficulty with ambulation because he feels weak. Past medical history hypertension Family history no significant past medical history that runs in the family as per the patient. Social history the patient admits to an extensive tobacco smoking history. Last cigarette was 3 weeks ago. Surgical history right hip replacement approximately 10 years ago 10-4 Follow-up for UTI, and new diagnosis of A. fib/CHF. Patient reports feeling only slightly better today. Reports continued dysuria with some urinary retention. He denies fevers or chills. He complains of continued generalized weakness and fatigue. He had episodes of epigastric heartburn overnight, relieved after receiving Tums. Denies any headache, lightheadedness, dizziness, chest pain, shortness of breath, abdominal pain, nausea/vomiting, or diarrhea. He does report recent weight loss of probably over 50lbs this year. He states he hardly has an appetite. He is unable to tell the color of his stool because of his poor vision. He believes he had a colonoscopy many years ago, at least 10-20years, does not recall any abnormal results. Discussed the patient's new diagnosis of afib and CHF. The patient agrees to medical management, however does not want any further ischemic work up. After long discussion, the patient requests to be DNR. 10-5 Follow-up for UTI, failed outpatient, new A. fib/CHF/and STEMI. Patient reports feeling slightly better today, however still very weak and fatigued. He reports continued dysuria and incomplete voiding. He states many years ago he was told he has an enlarged prostate, required Damon catheter for short period of time, but absolutely wants to avoid this if possible. He states he still urinating just more frequently. He denies any fevers or chills. He denies any chest pain today, although did have some substernal burning chest pain yesterday. Denies any shortness of breath, diaphoresis, or nausea/ vomiting. He has no other medical complaints at this time. 10-6 Follow-up for UTI, and new diagnosis of A. fib/CHF. Seen and examined laying in bed, denies any chest pain or shortness of breath or palpitation. Patient states that he had chest pain in the beginning on admission however it was relieved. Patient denies any shortness of breath, not even on exertion. Patient complained about pain in urination, patient stated he had blood in his urine a week ago when he had the first symptom. But then it resolves in a day. However he continued to have pain in urination. Patient denies any history of bladder cancer, prostate cancer. Patient states that he was seen in [place] and did not have any workup before. Patient reported that he had a Damon catheter placed 6 years ago for unable to void for about few months. Patient denies any nausea or vomiting. Denies any abdominal pain. Denies any diarrhea or constipation. Denies any fever or chills. 10-7 Follow-up for UTI, and new diagnosis of A. fib/CHF. Patient seen and examined laying in bed, denies any palpitation, chest pain or shortness of breath, stated feeling better. Patient stated his only complaint is the pain and burning in urination. Patient stated he had some kidney stones in the past. Patient denies any headache or dizziness, denies any nausea or vomiting, denies any diarrhea or constipation. Patient denies any fever or chills. Discussed discharge planning and plan for placement in the nursing facility, patient agreed with the plan. 10-8 PATIENT IS ON ELIQUIS FOR AFIB LIVES ALONE NEEDS SNF CONTINUE TREATING UTI DW RN AND CM AND PT AM LABS DW DAUGHTER LISA [phone] IN [place] SHE AGREES WITH SNF MAY NEED [facility] VS SNF SINCE HE LIVES ALONE 10-9 WORKING WITH PT AND OT LIVES ALONE NO OTHER FAMILY MEMBERS HERE HAS BLINDNESS AND HAS HAD ISSUES LIVING ALONE MAY NEED [facility] SINCE NOT SURE IF INSURANCE WILL COVER SNF 10-10 HAS BEEN ACCEPTED AT SNF TO GO TO SNF TODAY 3008 DONE PAPERWORK DONE NANNETTE RN AND PT AND CM DS: Diagnosis - Discharge Diagnosis (1) Acute UTI Status: Acute (2) Weakness Status: Acute (3) Cardiomyopathy Status: Chronic (4) Atrial fibrillation Status: Acute DS: Medications - Discharge Medications Prescriptions: cefuroxime axetil 500 mg PO Q12H #20 tab tramadol 50 mg PO Q6H PRN #12 tab PRN Reason: Pain DS: Summary Hospital Course: This patient is an 87-year-old male with a diagnosis of hypertension. As per the patient he only takes blood pressure medications however is on sure about which medications he takes. He presents to our emergency department today with complaints of dysuria that have been ongoing for a week. Initially the patient went to [facility] and was evaluated and diagnosed with a urinary tract infection. He was given antibiotics however is on sure about which medication he took. His symptoms continued and he now comes back into the emergency department for evaluation of dysuria. He denies having any fevers or chills. He admits to urinary frequency however has not had any difficulty with urinary stream or initiating. He denies having any history of atrial fibrillation. On my evaluation the patient is denying any chest pain, no abdominal pain, no shortness of breath. He is unsure if he has noticed any blood in his urine as the patient states he has very poor vision. He has no history of prior bleeding in the past. He also states that he has been feeling weak over the past week and has been having difficulty with ambulation because he feels weak. Past medical history hypertension Family history no significant past medical history that runs in the family as per the patient. Social history the patient admits to an extensive tobacco smoking history. Last cigarette was 3 weeks ago. Surgical history right hip replacement approximately 10 years ago 10-4 Follow-up for UTI, and new diagnosis of A. fib/CHF. Patient reports feeling only slightly better today. Reports continued dysuria with some urinary retention. He denies fevers or chills. He complains of continued generalized weakness and fatigue. He had episodes of epigastric heartburn overnight, relieved after receiving Tums. Denies any headache, lightheadedness, dizziness, chest pain, shortness of breath, abdominal pain, nausea/vomiting, or diarrhea. He does report recent weight loss of probably over 50lbs this year. He states he hardly has an appetite. He is unable to tell the color of his stool because of his poor vision. He believes he had a colonoscopy many years ago, at least 10-20years, does not recall any abnormal results. Discussed the patient's new diagnosis of afib and CHF. The patient agrees to medical management, however does not want any further ischemic work up. After long discussion, the patient requests to be DNR. 10-5 Follow-up for UTI, failed outpatient, new A. fib/CHF/and STEMI. Patient reports feeling slightly better today, however still very weak and fatigued. He reports continued dysuria and incomplete voiding. He states many years ago he was told he has an enlarged prostate, required Damon catheter for short period of time, but absolutely wants to avoid this if possible. He states he still urinating just more frequently. He denies any fevers or chills. He denies any chest pain today, although did have some substernal burning chest pain yesterday. Denies any shortness of breath, diaphoresis, or nausea/ vomiting. He has no other medical complaints at this time. 10-6 Follow-up for UTI, and new diagnosis of A. fib/CHF. Seen and examined laying in bed, denies any chest pain or shortness of breath or palpitation. Patient states that he had chest pain in the beginning on admission however it was relieved. Patient denies any shortness of breath, not even on exertion. Patient complained about pain in urination, patient stated he had blood in his urine a week ago when he had the first symptom. But then it resolves in a day. However he continued to have pain in urination. Patient denies any history of bladder cancer, prostate cancer. Patient states that he was seen in [place] and did not have any workup before. Patient reported that he had a Damon catheter placed 6 years ago for unable to void for about few months. Patient denies any nausea or vomiting. Denies any abdominal pain. Denies any diarrhea or constipation. Denies any fever or chills. 10-7 Follow-up for UTI, and new diagnosis of A. fib/CHF. Patient seen and examined laying in bed, denies any palpitation, chest pain or shortness of breath, stated feeling better. Patient stated his only complaint is the pain and burning in urination. Patient stated he had some kidney stones in the past. Patient denies any headache or dizziness, denies any nausea or vomiting, denies any diarrhea or constipation. Patient denies any fever or chills. Discussed discharge planning and plan for placement in the nursing facility, patient agreed with the plan. 10-8 PATIENT IS ON ELIQUIS FOR AFIB LIVES ALONE NEEDS SNF CONTINUE TREATING UTI DW RN AND CM AND PT AM LABS DW DAUGHTER LISA [phone] IN [place] SHE AGREES WITH SNF MAY NEED [facility] VS SNF SINCE HE LIVES ALONE 10-9 WORKING WITH PT AND OT LIVES ALONE NO OTHER FAMILY MEMBERS HERE HAS BLINDNESS AND HAS HAD ISSUES LIVING ALONE MAY NEED [facility] SINCE NOT SURE IF INSURANCE WILL COVER [facility] 1010 HAS BEEN ACCEPTED AT [facility] TO GO TO [facility] TODAY 3008 DONE PAPERWORK DONE DW RN AND PT AND CM [place] Prescription Drug Monitoring Database has been queried and verified prior to prescribing the controlled substance. Acute pain exception. This patient has normal, predicted, physiological, and time limited response to an adverse mechanical stimulus associated with surgery, trauma, or acute illness as described in my notes. There is a lack of alternative treatment options other than to include the prescribed narcotic treatment for this condition. given rx for ultram - Time Spent with Patient Total time spent providing and/or coordinating discharge services: Greater than 30 minutes - Quality: VTE Deep Vein Thrombosis/Pulmonary Embolism Present on Admission: No Exam Vital signs: Vital Signs 06/01/18 12:00 06/01/18 16:00 06/01/18 16:09 Temperature 97.1 F L 97.7 F Pulse Rate 64 70 62 Respiratory Rate 19 18 Blood Pressure 92/61 L 130/65 Pulse Oximetry 96 97 06/01/18 19:00 06/01/18 20:00 06/02/18 00:00 Temperature 97.2 F L 97.4 F L 98 F Pulse Rate 73 67 63 Respiratory Rate 19 20 20 Blood Pressure 138/91 H 173/83 H 131/74 Pulse Oximetry 96 96 96 06/02/18 04:00 06/02/18 08:00 Temperature 97.4 F L 97.8 F Pulse Rate 73 60 Respiratory Rate 20 18 Blood Pressure 170/95 H 150/71 H Pulse Oximetry 92 L 95 Intake & Output 06/01/18 06/02/18 06/02/18 18:59 06:59 18:59 Intake Total 820 / 820 330 / 330 Output Total 900 / 900 Balance 820 / 820 -570 / -570 Intake: IV 100 / 100 Rocephin Inj 1,000 MG In NS Inj 100 / 100 100 ML @ 200 mls/hr IV.SIG Q24H TAY Rx#:[id number] Oral 720 / 720 330 / 330 Output: Urine 900 / 900 Other: # Voids 4 3 Date of Last Bowel Movement 05/31/18 06/01/18 # Bowel Movements 1 Narrative: GENERAL: Well-developed, thin elderly male, alert and oriented x3, in no apparent distress SKIN: Warm and dry. HEAD: Atraumatic. Normocephalic. EYES: Pupils equal and round. No scleral icterus. No injection or drainage. ENT: No nasal bleeding or discharge. Mucous membranes pink and moist. NECK: Trachea midline. No JVD. CARDIOVASCULAR: IRRegular rate and rhythm. Positive murmur 1/6 RESPIRATORY: No accessory muscle use. Clear to auscultation. Breath sounds equal bilaterally. GASTROINTESTINAL: Abdomen flat soft, non-tender, nondistended. Hepatic and splenic margins not palpable. MUSCULOSKELETAL: Extremities without clubbing, cyanosis, or edema. No obvious deformities. NEUROLOGICAL: Awake and alert. No obvious cranial nerve deficits. Motor grossly within normal limits. Generalized weakness, moving all extremities. Normal speech. PSYCHIATRIC: Appropriate mood and affect; insight and judgment normal. Results Procedures completed during hospitalization: NONE Completed studies during hospitalization: Laboratory Results WBC 6.0 th/mm3 (4.0-11.0) 06/01/18 07:00 RBC 4.01 mil/mm3 (4.50-5.90) L 06/01/18 07:00 Hgb 12.8 gm/dL (13.0-17.0) L 06/01/18 07:00 Hct 38.2 % (39.0-51.0) L 06/01/18 07:00 MCV 95.4 fL (80.0-100.0) 06/01/18 07:00 MCH 32.0 pg (27.0-34.0) 06/01/18 07:00 MCHC 33.5 % (32.0-36.0) 06/01/18 07:00 RDW 14.2 % (11.6-17.2) 06/01/18 07:00 Plt Count 336 th/mm3 (150-450) D 06/01/18 07:00 MPV 9.3 fL (7.0-11.0) 06/01/18 07:00 Neut % (Auto) 60.3 % (16.0-70.0) 06/01/18 07:00 Lymph % (Auto) 24.0 % (9.0-44.0) 06/01/18 07:00 [place] % (Auto) 13.4 % (0.0-8.0) H 06/01/18 07:00 Eos % (Auto) 1.3 % (0.0-4.0) 06/01/18 07:00 Baso % (Auto) 1.0 % (0.0-2.0) 06/01/18 07:00 Neut # (Auto) 3.6 th/mm3 (1.8-7.7) 06/01/18 07:00 Lymph # (Auto) 1.4 th/mm3 (1.0-4.8) 06/01/18 07:00 [place]lin # (Auto) 0.8 th/mm3 (0.0-0.9) 06/01/18 07:00 Eos # (Auto) 0.1 th/mm3 (0.0-0.4) 06/01/18 07:00 Baso # (Auto) 0.1 th/mm3 (0.0-0.2) 06/01/18 07:00 WBC Differential . 06/01/18 07:00 Differential Comment Auto diff final 06/01/18 07:00 PT 11.6 sec (9.8-11.6) 06/01/18 07:00 INR 1.1 Ratio 06/01/18 07:00 APTT 32.0 sec (24.3-30.1) H 05/26/18 12:30 Sodium 136 meq/L (136-145) 06/01/18 07:00 Potassium 3.8 meq/L (3.5-5.1) 06/01/18 07:00 Chloride 100 meq/L (98-107) 06/01/18 07:00 Carbon Dioxide 28.7 meq/L (21.0-32.0) 06/01/18 07:00 Anion Gap 7 meq/L (5-15) 06/01/18 07:00 BUN 23 mg/dL (7-18) H 06/01/18 07:00 Creatinine 0.63 mg/dL (0.60-1.30) 06/01/18 07:00 Estimated GFR Greater than 89 mL/min (>89) 06/01/18 07:00 Random Glucose 87 mg/dL (74-106) 06/01/18 07:00 Hemoglobin A1c 5.8 % (4.3-6.0) 06/01/18 07:00 Calcium 8.7 mg/dL (8.5-10.1) 06/01/18 07:00 Magnesium 1.6 mg/dL (1.5-2.5) 06/01/18 07:00 Total Bilirubin 0.4 mg/dL (0.2-1.0) 06/01/18 07:00 AST 63 U/L (15-37) H 06/01/18 07:00 ALT 83 U/L (12-78) H 06/01/18 07:00 Alkaline Phosphatase 199 U/L (45-117) H 06/01/18 07:00 Total Creatine Kinase 40 U/L (39-308) 05/26/18 12:30 Troponin I 0.59 ng/mL (0.02-0.05) H 06/01/18 07:00 Total Protein 6.0 g/dL (6.4-8.2) L D 06/01/18 07:00 Albumin 2.3 g/dL (3.4-5.0) L 06/01/18 07:00 Triglycerides 75 mg/dL (42-150) 06/01/18 07:00 Cholesterol 125 mg/dL (120-200) 06/01/18 07:00 LDL Cholesterol, Calc 73 mg/dL (0-99) 06/01/18 07:00 HDL Cholesterol 37.2 mg/dL (40.0-60.0) L 06/01/18 07:00 Cholesterol/HDL Ratio 3.36 Ratio 06/01/18 07:00 Vitamin B12 620 pg/mL (193-986) 05/27/18 07:15 TSH 3.660 uIU/mL (0.358-3.740) 06/01/18 07:00 Free T4 0.97 ng/dL (0.76-1.46) 06/01/18 07:00 Urine Color Shirley (Yellw/Straw) 05/26/18 12:40 Urine Clarity Cloudy (Clear) H 05/26/18 12:40 Urine pH 6.0 (5.0-8.5) 05/26/18 12:40 Ur Specific [place] 1.019 (1.002-1.035) 05/26/18 12:40 Urine Protein 100 mg/dL (Neg-Trace) H 05/26/18 12:40 Urine Glucose (UA) Negative mg/dL (Negative) 05/26/18 12:40 Urine Ketones Trace mg/dL (Negative) H 05/26/18 12:40 Urine Occult Blood Negative (Negative) 05/26/18 12:40 Urine Nitrate Negative (Negative) 05/26/18 12:40 Urine Bilirubin Negative (Negative) 05/26/18 12:40 Urine Urobilinogen 4 or greater mg/dL (Less than 2) 05/26/18 12:40 Ur Leukocyte Esterase Small (Negative) H 05/26/18 12:40 Urine RBC 26 /hpf (0-3) H 05/26/18 12:40 Urine WBC 68 /hpf (0-5) H 05/26/18 12:40 Ur Squamous Epith Cells 2 /hpf (0-5) 05/26/18 12:40 Amorphous Sediment Rare /hpf (None) H 05/26/18 12:40 Urine Mucus Few /lpf (Occasional) H 05/26/18 12:40 Micro UA Comment Culture indicated 05/26/18 12:40 Ur Microscopic Review Not Reportable 05/26/18 12:40 Urine Culture Comments Culture indicated 05/26/18 12:40 Blood Type A Positive 05/26/18 12:30 Blood Type Recheck Required 05/26/18 12:30 Antibody Screen Negative 05/26/18 12:30 Impressions Abdomen/Pelvis CT 05/26/18 12:11 CONCLUSION: 1. Markedly enlarged prostate. 2. 2 cm calcified urinary bladder stone. 3. Uncomplicated colonic diverticulosis. 4. 18 mm left adrenal nodule consistent with probable adrenal adenoma. 5. Cardiomegaly and coronary artery calcifications. 6. Degenerative changes, scoliosis and multilevel spinal stenoses within lumbar spine. 7. Small left inguinal hernia containing only fat. 8. Posterior bibasilar atelectatic changes. 9. Tiny bilateral pleural effusions. Chest X-Ray 05/26/18 12:11 CONCLUSION: 1. Cardiomegaly. 2. Bilateral rotator cuff pathology and significant degenerative changes involving the shoulders. 3. No focal infiltrate or pulmonary vascular congestion. 4. Degenerative changes throughout the thoracic spine. Labs on day of discharge: Labs from last 24 hours 06/01/18 07:00 Hemoglobin A1c 5.8 - Impressions ITS Impressions Abdomen/Pelvis CT 05/26/18 12:11 CONCLUSION: 1. Markedly enlarged prostate. 2. 2 cm calcified urinary bladder stone. 3. Uncomplicated colonic diverticulosis. 4. 18 mm left adrenal nodule consistent with probable adrenal adenoma. 5. Cardiomegaly and coronary artery calcifications. 6. Degenerative changes, scoliosis and multilevel spinal stenoses within lumbar spine. 7. Small left inguinal hernia containing only fat. 8. Posterior bibasilar atelectatic changes. 9. Tiny bilateral pleural effusions. Chest X-Ray 05/26/18 12:11 CONCLUSION: 1. Cardiomegaly. 2. Bilateral rotator cuff pathology and significant degenerative changes involving the shoulders. 3. No focal infiltrate or pulmonary vascular congestion. 4. Degenerative changes throughout the thoracic spine. Discharge Plan - Discharge Disposition Patient Disposition: Discharge to SNF - Discharge Condition Condition: Stable - Discharge Order Discharge Orders: Discharge Order (Routine); Ordered 06/02/18 Ordered By: Eris Luz - Discharge Details Anticipated Discharge Date: 06/02/18 Discharge Comment: dc to snf today - Physicians Team Primary Care Provider: Primary Care Physici,No Attending Provider: Eris Luz Other Providers: Hudson Myers MD ; [employer] ; [facility]
[2018-06-02 15:03] VITALS: PULSE 63
== END 2018-06-02 12:36 ==
LOC: NEDH 11:49 → NEPC 11:49 → NEPGCP 16:54 → N04 05-28 13:02
PROVIDERS: ADMIT Hospitalist; ATTEND Hospitalist